=== PATIENT | male | born 1970 | race Caucasian/White ===

== ENCOUNTER 2023-05-27 06:59 | Outpatient (OUT) | payer OTHER, SELFPAY ==
[2023-05-27 07:16] LABS: Basophils Percent Auto 0.5 % (0.2-2.0); Eosinophils Absolute Auto 0.5 10^3/uL (0.0-0.7); Eosinophils Percent Auto 8.5 % (0.9-7.0); Hematocrit 42.1 % (42.0-54.0); Hemoglobin 14.5 g/dL (14.0-18.0); Immature Granulocytes Abs Auto 0.02 10^3/uL (0.00-0.03); Immature Granulocytes Pct Auto 0.4 % (0.0-0.5); Lymphocytes Absolute Auto 1.7 10^3/uL (1.2-3.8); Lymphocytes Percent Auto 31.3 % (20.5-60.0); Mean Corpuscular HGB Conc 34.4 g/dL (29.9-35.2); Mean Corpuscular Hemoglobin 30.5 pg (25.9-34.0); Mean Corpuscular Volume 88.4 fL (80.0-94.0); Mean Platelet Volume 9.2 fL (9.5-13.5); Monocytes Absolute Auto 0.5 10^3/uL (0.3-0.8); Monocytes Percent Auto 8.5 % (1.7-12.0); Neutrophils Absolute Auto 2.8 10^3/uL (1.4-6.5); Neutrophils Percent Auto 50.8 % (43.0-75.0); Platelet Count 219 10^3/uL (150-450); Red Blood Count 4.76 10^6/uL (4.70-6.10); Red Cell Distribution Width 13.6 % (11.0-15.0); White Blood Count 5.5 10^3/uL (4.0-11.0)
[2023-05-27 07:52] LABS: Alanine Aminotransferase 31 U/L (16-63); Albumin Level 3.8 g/dL (3.4-5.0); Alkaline Phosphatase 87 U/L (46-116); Aspartate Amino Transferase 19 U/L (15-37); BUN Creatinine Ratio 13.6; Bilirubin Total 0.3 mg/dL (0.2-1.0); Calcium 8.5 mg/dL (8.5-10.1); Carbon Dioxide 28.5 mmol/L (21.0-32.0); Chloride 105 mmol/L (98-107); Chol HDL Ratio 3.2; Cholesterol 206 mg/dL (<=200); Estimated GFR (African America >60 (>=60); Estimated GFR (Non-African Ame >60 (>=60); Globulin 3.9 g/dL; Glucose 101 mg/dL (74-106); HDL Cholesterol 65 mg/dL (40-60); Potassium 4.5 mmol/L (3.5-5.1); Sodium 141 mmol/L (136-145); Total Protein 7.7 g/dL (6.4-8.2); Triglycerides 58 mg/dL (<=150); VLDL CHOLESTEROL 11.6 mg/dL
[2023-05-27 08:20] LABS: Prostate Specific Antigen Scrn 0.33 ng/mL (<=4.00)
== END 2023-05-27 07:00 | disposition home or self-care (01) ==
LOC: LAB 07:03
PROVIDERS: PCP Internal Medicine; Visit Provider Internal Medicine
DX: Z00.00 Encounter for general adult medical examination without abnormal findings (principal)
CPT/HCPCS: 36415; 80053; 80061; 85025; G0103

== ENCOUNTER 2024-04-20 08:08 | Outpatient (OUT) | payer OTHER, SELFPAY ==
--- OUTSIDE RECORDS SUMMARY | 2024-04-20 08:11 | XMS_ITS | CCD ---
Author Organization [facility] Care Team Providers Care Robotics Technician Name Role Phone GINA, DR NUNN Primary Care Unavailable HOY ., DR MORRIS Admitting Unavailable HOY ., DR MORRIS Attending Unavailable HOY ., DR MORRIS Consulting Unavailable WEST, DR DAKOTA Wick Consulting Unavailable GRECHNY ., LIBBY ANG Consulting Unavailabl e NILL ., DR BURGER Consulting Unavailable AHDOOT, NOHEMY Consulting Unavailable EDGAR, TABITHA Consulting Unavailable PIERRE, MANUELA Consulting Unavailable GINA, DR NUNN Admitting Unavailable GINA, DR NUNN Attending Unavailable GINA, DR NUNN Primary Care Unavailable GINA, DR NUNN Consulting Unavailable GINA, DR NUNN Admitting Unavailable GINA, DR NUNN Attending Unavailable GINA, DR NUNN Primary Care Unavailable GINA, DR NUNN Consulting Unavailable GINA, DR NUNN Primary Care Unavailable HAY ., DR REYNOSO Admitting Unavailable HAY ., DR REYNOSO Attending Unavailable HAY ., DR REYNOSO Consulting Unavailable NILL, Sergio Browning Attending Unavailable KARLA FOSS Referring Unavailable Leonard Cohen Unavailable Baltazar Lea Admitting Baltazar Urena Attending UnavailLeonard Cárdenas Primary Care Unavailable MD Baltazar Lea Attending Provider [phone] DO Leonard Cohen Primary Care Provider [phone] Baltazar Lea Unavailable Medications Current Medications Medication Drug Class(es) Dates Sig (Normalized) Sig (Original) Loratadine (11 sources) Start: 03-04-2024 Loratadine Act jenny 0 .ROUTE .COMPLEX March 04, 2024 10:05am TAKE 1 TABLET DAILY Start: 12-05-2023 End: 03-04-2024 Loratadine Discontinued 0 .R OUTE .COMPLEX December 05, 2023 11:23am March 04, 2024 10:05am TAKE 1 TABLET DAILY Start: 09-15-2022 End: 12-05-2023 take 10 mg by mouth once daily Loratadine Discontinued 10 MG PO Daily September 15, 2022 12:00am December 05, 2023 11:23am Loratadine 10 mg TAKE 1 TABLET DAILY Active valACYclovir (9 sources) Herpesvirus Nucleoside Analog DNA Polymerase Inhibitor, Herpes Simplex Virus Nucleoside Analog DNA Polymerase Inhibitor, Herpes Zoster Virus Nucleoside Analog DNA Polymerase Inhibitor Start: 01-09-2024 Valacyclovir Active 0 .ROUTE .COMPLEX 90 January 09, 2024 8:50am TAKE 1 TABLET DAILY Start: 01-09-2024 End: 01-09-2024 take 1000 mg by mouth once daily Valacyclovir Discontinued 1000 MG PO Daily January 09, 2024 12:00am January 09, 2024 8:50am valACYclovir HCl 1 GM TAKE 1 TABLET DAILY Active valACYclovir HCl 1 GM TAKE 1 TABLET DAILY Active Completed/Discontinued Medications Medication Drug Class(es) Dates Sig (Normalized) Sig (Original) [id number] actuat albuterol 0.09 mg/actuat metered dose inhaler (7 sources) beta2-Adrenergic Agonist Start: 05-05-2017 take 2 puff(s) by inhalation every four hours as needed Albuterol Sulfate HFA 108 (90 Base) MCG/ACT 2 puffs as needed Inhalation every 4 hrs Apr, Not-Taking/PRN Start: 05-05-2017 take 2 puff(s) by in halation every four hours as needed Albuterol Sulfate HFA 108 (90 Base) MCG/ACT 2 puffs as needed Inhalation every 4 hrs Apr, Not-Taking Start: 05-05-2017 take 2 puff(s) by in halation every four hours as needed Albuterol Sulfate HFA 108 (90 Base) MCG/ACT 2 puffs as needed Inhalation every 4 hrs Apr, Not-Taking amoxicillin 875 mg / clavulanate 125 mg oral tablet (7 sources) Penicillin-class Antibacterial Start: 05-05-2017 take 1 tablet by mouth every twelve hours Amoxicillin-Pot Clavulanate 875-125 MG 1 tablet Orally every 12 hrs for 10 day(s) Apr, Not-Taking/PRN plenvu 140 gm solution reconstituted (7 sources) Osmotic Laxative, Vitamin C Start: 05-05-2022 Plenvu 140 GM dose 1 pouch at 4pm, dose 2 pouch A & B at 11pm Orally twice a day for 1 days BIN:[id number] PCN: [id number] GROUP:[id number] ID:[id number] Apr, Not-Taking/PRN Start: 05-05-2022 Plenvu 140 GM dose 1 pouch at 4pm, dose 2 pouch A & B at 11pm Orally twice a day for 1 days BIN:[id number] PCN: [id number] GROUP:[id number] ID:[id number] Apr, Not-Taking bisacodyl 5 mg delayed release oral tablet (7 sources) Stimulant Laxative Start: 05-17-2022 take 3 tablets by mouth once daily as needed Dulcolax 5 MG 3 tablets Orally at 3pm the day prior to colonoscopy for 1 days Apr, Not-Taking/PRN Brompheniramine / Pseudoephedrine (7 sources) alpha-Adrenergi c Agonist Start: 06-09-2017 take 5 mL by mouth every six hours as needed Bromfed DM 30-2-10 MG/5ML 5 ml as needed Orally every 6 hrs May, Not-Taking/PRN Start: 06-09-2017 take 5 mL by mouth e very six hours as needed Bromfed DM 30-2-10 MG/5ML 5 ml as needed Orally every 6 hrs May, Not-Taking Cetirizine (7 sources) Histamine-1 Receptor Antagonist ZyrTEC Allergy Not-Taking/PRN ZyrTEC Allergy N ot-Taking doxycycline monohydrate 100 mg oral capsule (7 sources) Tetracycline-class Drug Start: 06-09-2017 take 1 capsule by mouth every twelve hours Doxycycline Monohydrate 100 MG 1 capsule Orally every 12 hrs for 15 days May, Not-Taking/PRN fluticasone propionate 0.05 mg/actuat metered dose nasal spray (14 sources) Corticosteroid Start: 05-05-2017 take 1 spray(s) nasal route once daily as needed Fluticasone Propionate 50 MCG/ACT 1 spray in each nostril Nasally Once a day for 21 days May, Not-Taking/PRN Start: 05-05-2017 take 1 spray(s) nasa l route once daily Fluticasone Propionate 50 MCG/ACT 1 spray in each nostril Nasally Once a day for 21 days May, Not-Taking MiraLax 17 GM/SCOOP (5 sources) Start: 05-17-2022 take 238 g by mouth once daily MiraLax 17 GM/SCOOP 238gm Orally Once a day, at 5pm the day prior to colonoscopy for 1 days Apr, Not-Taking polyethylene glycol 3350 98202 mg powder for oral solution (2 sources) Osmotic Laxative Start: 05-17-2022 take 238 g by mouth once daily as needed MiraLax 17 GM/SCOOP 238gm Orally Once a day, at 5pm the day prior to colonoscopy for 1 days Apr, Not-Taking/PRN predniSONE 20 mg oral tablet (7 sources) Start: 05-05-2017 predniSONE 20 MG 2 tablets twice daily for 2 days then 1 tablet twice daily for 2 days then 1 tablet daily for 3 days Orally take with food for 7 days Apr, Not-Taking/PRN sildenafil 100 mg oral tablet (10 sources) Phosphodiesterase 5 Inhibitor Start: 09-27-2023 End: 09-27-2023 take 1 tablet by mouth once daily as needed Sildenafil Discontinued 100 MG PO Daily 12 16September 27, 2023 1:24pm September 27, 2023 2:42pm 1 tablet Orally PRN ED Sildenafil Citra te 100 MG 1 tablet Orally PRN ED for 90 days Active Problems Active Problems Problem Classification Problem Date Documented Da te Episodic/Chronic Abdominal pain (3 sources) Unspecified abdominal pain; Translations: [UNSPECIFIED ABDOMINAL PAIN] Onset: 08-18-2022 Episodic Deficiency and other anemia (1 source) Iron deficiency anemia, unspecified; Translations: [IRON DEFICIENCY ANEMIA UNSPECIFIED] Onset: 08-24-2022 Episodic Deficiency and other anemia (7 sources) Anemia; Translations: [Anemia, unspecified] Episodic Deficiency and other anemia (14 sources) Iron deficiency anemia; Translations: [Iron deficiency anemia, unspecified] Episodic Fluid and electrolyte disorders (1 source) Dehydration; Translations: [DEHYDRATION] Onset: 08-24-2022 Episodic Intestinal obstruction without hernia (2 sources) Partial intestinal obstruction, unspecified as to cause; Translations: [PART INTESTINAL OBST UNS TO CAU] Onset: 08-24-2022 Episodic Mood disorders (7 sources) Mild major depression, single episode; Translations: [Major depressive disorder, single episode, mild] Chronic Nutritional deficiencies (4 sources) Iron deficiency; Translations: [Iron deficiency] Onset: 09-15-2022 09-15-2022 Episodic Other aftercare (1 source) Other mcc (current) drug therapy; Translations: [OTH PAYROLL BENEFITS ADMINISTRATOR CURRENT DRUG THERAPY] Onset: 08-24-2022 Episodic Other male genital disorders (7 sources) Impotence of organic origin; Translations: [Male erectile dysfunction, unspecified] Chronic Other male genital disorders (3 sources) Male erectile dysfunction, unspecified; Translations: [Erectile dysfunction] Chronic Other nutritional; endocrine; and metabolic disorders (2 sources) Body mass index 30+ - obesity; Translations: [Body mass index (BMI) 32.0-32.9, adult] Chronic Other nutritional; endocrine; and metabolic disorders (2 sources) 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 imbalance; Translations: [Other obesity due to excess calories] Chronic Other nutritional; endocrine; and metabolic disorders (1 source) Other obesity due to excess calories Chronic Other nutritional; endocrine; and metabolic disorders (1 source) Body mass index (BMI) 32.0-32.9, adult Chronic Other nutritional; endocrine; and metabolic disorders (1 source) Obesity; Translations: [Obesity, unspecified] 04-05-2024 Chronic Other nutritional; endocrine; and metabolic disorders (1 source) Obesity, unspecified; Translations: [Obesity, unspecified] 04-05-2024 Chronic Other screening for suspected conditions (not mental disorders or infectious disease) (5 sources) Other specified abnormal findings of blood chemistry; Translations: [Encounter for screening for malignant neoplasm of prostate] Onset: 11-10-2021 Episodic Other upper respiratory infections (2 sources) Acute upper respiratory infection, unspecified; Translations: [Acute pharyngitis, unspecified] Onset: 06-21-2022 Episodic Residual codes; unclassified (1 source) Acquired absence of other specified parts of digestive tract; Translations: [ACQ ABSENCE OTH PART DIGESTV TRACT] Onset: 08-24-2022 Episodic Unclassified (1 source) CONTACT W/AND (SUSP) EXPOS COVID-19; Translations: [CONTACT W/AND (SUSP) EXPOS COVID-19] Onset: 08-24-2022 Unclassified (2 sources) COUGH, UNSPECIFIED; Translations: [COUGH, UNSPECIFIED] Onset: 06-21-2022 Viral infection (8 sources) Herpes simplex type 2 infection; Translations: [Herpesviral infection, unspecified] Episodic Past or Other Problems Problem Classification Problem Date Documented Da te Episodic/Chronic Deficiency and other anemia (4 sources) Anemia, unspecified; Translations: [ANEMIA UNSPECIFIED] Onset: 02-12-2022 Episodic Unclassified (1 source) COUGH, UNSPECIFIED; Translations: [COUGH, UNSPECIFIED] Onset: 06-19-2022 Results Test Name Value Interpretation Reference Range Facil carol Camacho 09-15-2022 L -- ---- Specimen: [id number] Received: 09/15/22 Status: RICHELLE Bonilla Num: [id number] Spec Type: Surgical Subm Dr: Baltazar Lea MD Tissues: A Stomach - Biopsy/Polyp (PATCHY GATRITIS BX) Procedures: HE/2, Gross/Micro L4 ---- Age/ Patient Sex Location Account Attending Physician ---- Robert Brock/M [id number] Baltazar Lea MD ---- SPEC NUM: [id number] RECD: 09/15/22 STATUS: RICHELLE BONILLA NUM: [id number] JACQUES: 09/15/22 DR: Baltazar Lea MD ENTERED: 09/15/[address] [facility] [address]: MAURO TYPE: Surgical DEPT: S ORDERED: HE/2, Gross/Micro L4 ORDERED: HE/2, Gross/Micro L4 Pathological Diagnosis Stomach, patchy gastritis, biopsy: - Reactive gastropathy with focal intestinal metaplasia. - Negative for Helicobacter pylori on H E stain. COMMENT: The identified risk factors for intestinal metaplasia include H. Pylori infection, high salt intake, smoking, alcohol consumption, and chronic bile reflux. H. Pylori infection should not be excluded on the basis of the negative results of tissue-based tests; other diagnostic tests, including serology, 13c-urea breath test, or stool antigen, should be considered and if positive the patient should be treated. Small foci of intestinal metaplasia have a poorly understood association with the development of malignancy. The association of metaplasia and malignancy occur when at least 20% of the surface demonstrates metaplasia, there is a close family history of gastric carcinoma, or there is a current smoking history. Please correlate clinically. Clinical Information Iron deficiency Gross Description Received in formalin labeled with the patient's name, number and patchy gastritis biopsy is one fragment of soft leary tissue measuring 0.3 cm. Entirely submitted in one cassette labeled A1. ---- Specimen: [id number] Received: 09/15/22 Status: RICHELLE Chad Num: [id number] Spec Type: Surgical Subm Dr: Baltazar Lea MD Tissues: A Stomach - Biopsy/Polyp (PATCHY GATRITIS BX) Procedures: Ramy WILCOX/Micro L4 ---- Patient: VinodRobert Eloise [id number] (Continued) ---- Specimen: Received: 09/15/22 (Continued) Signed (signature on file) Kimi Upton MD 09/16/220 ---- Specimen: Received: 09/15/22 Status: RICHELLE Chad Num: [id number] Spec Type: Surgical Subm Dr: Baltazar Lea MD Tissues: A Stomach - Biopsy/Polyp (PATCHY GATRITIS BX) Procedures: Ramy WILCOX/Micro L4 ---- Patient: Robert Brock [id number] (Continued) ---- Specimen: [id number] Received: 09/15/22 (Continued) Microscopic Description Two glass slides with H E stained material have been examined. The microscopic findings support the above pathologic diagnosis. CPT Codes 06058 ---- ---- Specimen: [id number] Received: 09/15/22 Status: RICHELLE Bonilla Num: [id number] Spec Type: Surgical Subm Dr: Baltazar Lea MD Tissues: A Stomach - Biopsy/Polyp (PATCHY GATRITIS BX) Procedures: HE/2, Gross/Micro L4 ---- Patient: Robert Brock [id number] (Continued) ---- Signed (signature on file) Kimi Upton MD 09/16/22 1210 Normal [facility] Consultation Noteon 08-23-19 Consultation Note [id number] [facility] CBC AUTO DIFFon 08-19-2022 BASO # 0.0 103/ul Normal 0.0-0.1 [facility] Comment on above: Performed By: #### C BC #### [facility] [address] [place] [address] Dr. Bennie Ramey Basophils/100 WBC (Bld) 0.2 % Normal 0.2-2.0 [facility] Comment on above: Performed By: #### C BC #### [facility] [address] [place] [address] Dr. Bennie Ramey EO # 0.4 103/ul Normal 0.0-0.7 [facility] Comment on above: Performed By: #### C BC #### [facility] [address] [place] [address] Dr. Bennie Ramey Eosinophils/100 WBC (Bld) 3.8 % Normal 0.9-7.0 [facility] Comment on above: Performed By: #### C BC #### [facility] [address] [place] [address] Dr. Bennie Ramey Erythrocyte distribution width (RBC) [Ratio] 14.2 % Normal 11.0-15.0 [facility] Comment on above: Performed By: #### C BC #### [facility] [address] [place] [address] Dr. Bennie Ramey Hematocrit (Bld) [Volume fraction] 35.4 % Critically low 42.0-54.0 [facility] Comment on above: Performed By: #### C BC #### [facility] [address] [place] [address] Dr. Bennie Ramey Hemoglobin (Bld) [Mass/Vol] 12.3 g/dL Critically low 14.0-18.0 [facility] Comment on above: Performed By: #### C BC #### [facility] [address] [place] [address] Dr. Bennie Ramey IG # 0.02 10e3/ul Normal 0.00-0.03 [facility] Comment on above: Performed By: #### C BC #### [facility] [address] [place] [address] Dr. Bennie Ramey IG % 0.2 % Normal 0.0-0.5 [facility] Comment on above: Performed By: #### C BC #### [facility] [address] [place] [address] Dr. Bennie Ramey LYMPH # 1.6 103/ul Normal 1.2-3.8 [facility] Comment on above: Performed By: #### C BC #### [facility] [address] [place] [address] Dr. Bennie Ramey Lymphocytes/100 WBC (Bld) 17.4 % Critically low 20.5-60.0 [facility] Comment on above: Performed By: #### C BC #### [facility] [address] [place] [address] Dr. Bennie Ramey MANUAL DIFF REQ NO Normal [facility] Comment on above: Performed By: #### C BC #### [facility] [address] [place] [address] Dr. Bennie Ramey MCH (RBC) [Entitic mass] 29.4 pg Normal 25.9-34.0 [facility] Comment on above: Performed By: #### C BC #### [facility] [address] [place] [address] Dr. Bennie Ramey MCHC (RBC) [Mass/Vol] 34.7 g/dL Normal 29.9-35.2 [facility] Comment on above: Performed By: #### C BC #### [facility] [address] [place] [address] Dr. Bennie Ramey MCV (RBC) [Entitic vol] 84.5 fL Normal 80.0-94.0 [facility] Comment on above: Performed By: #### C BC #### [facility] [address] [place] [address] Dr. Bennie Ramey MONO # 0.6 103/ul Normal 0.3-0.8 [facility] Comment on above: Performed By: #### C BC #### [facility] [address] [place] [address] Dr. Bennie Ramey Monocytes/100 WBC (Bld) 6.9 % Normal 1.7-12.0 [facility] Comment on above: Performed By: #### C BC #### [facility] [address] [place] [address] Dr. Bennie Ramey NEUT # 6.6 103/ul Critically high 1.4-6.5 [facility] Comment on above: Performed By: #### C BC #### [facility] [address] [place] [address] Dr. Bennie Ramey Neutrophils/100 WBC (Bld) 71.5 % Normal 43.0-75.0 [facility] Comment on above: Performed By: #### C BC #### [facility] [address] [place] [address] Dr. Bennie Ramey Platelet mean volume (Bld) [Entitic vol] 9.2 fL Critically low 9.5-13.5 [facility] Comment on above: Performed By: #### C BC #### [facility] [address] [place] [address] Dr. Bennie Ramey PLT 202 103/ul Normal 150-450 [facility] Comment on above: Performed By: #### C BC #### [facility] [address] [place] [address] Dr. Bennie Ramey RBC 4.19 106/ul Critically low 4.70-6.10 [facility] Comment on above: Performed By: #### C BC #### [facility] [address] [place] [address] Dr. Bennie Ramey WBC 9.2 103/ul Normal 4.0-11.0 [facility] Comment on above: Performed By: #### C BC #### [facility] [address] [place] [address] Dr. Bennie Ramey PROF 14(COMP METB)on 023 Albumin [Mass/Vol] 3.4 g/dL Normal 3.4-5.0 [facility] Comment on above: Performed By: #### C MP #### [facility] [address] [place] [address] Dr. Bennie Ramey Albumin/Globulin [Mass ratio] 1.1 {ratio} Normal [facility] Comment on above: Performed By: #### C MP #### [facility] [address] [place] [address] Dr. Bennie Ramey ALP [Catalytic activity/Vol] 90 U/L Normal 46-116 [facility] Comment on above: Performed By: #### C MP #### [facility] [address] [place] [address] Dr. Bennie Ramey ALT [Catalytic activity/Vol] 32 U/L Normal 16-63 [facility] Comment on above: Performed By: #### C MP #### [facility] [address] [place] [address] Dr. Bennie Ramey Anion gap [Moles/Vol] 10.0 mmol/L Normal [facility] Comment on above: Performed By: #### C MP #### [facility] [address] [place] [address] Dr. Bennie Ramey AST [Catalytic activity/Vol] 20 U/L Normal 15-37 [facility] Comment on above: Performed By: #### C MP #### [facility] [address] [place] [address] Dr. Bennie Ramey Bilirubin [Mass/Vol] 0.4 mg/dL Normal 0.2-1.0 [facility] Comment on above: Performed By: #### C MP #### [facility] [address] [place] [address] Dr. Bennie Ramey Calcium [Mass/Vol] 8.5 mg/dL Normal 8.5-10.1 [facility] Comment on above: Performed By: #### C MP #### [facility] [address] [place] [address] Dr. Bennie Ramey Chloride [Moles/Vol] 104 mmol/L Normal 98-107 [facility] Comment on above: Performed By: #### C MP #### [facility] [address] [place] [address] Dr. Bennie Ramey CO2 [Moles/Vol] 29.7 mmol/L Normal 21.0-32.0 [facility] Comment on above: Performed By: #### C MP #### [facility] [address] [place] [address] Dr. Bennie Ramey Creatinine [Mass/Vol] 1.10 mg/dL Normal 0.70-1.30 [facility] Comment on above: Performed By: #### C MP #### [facility] [address] [place] [address] Dr. Bennie Ramey EGFR-AF UGANDAN >60 Normal >=60 [facility] Comment on above: Performed By: #### C MP #### [facility] [address] [place] [address] Dr. Bennie Ramey EGFR-NON AF UGANDAN >60 Normal >=60 [facility] Comment on above: Performed By: #### C MP #### [facility] [address] [place] [address] Dr. Bennie Ramey Globulin (S) [Mass/Vol] 3.0 g/dL Normal [facility] Comment on above: Performed By: #### C MP #### [facility] [address] [address] [address] Bennie Ramey Glucose [Mass/Vol] 111 mg/dL Critically high 74-106 [facility] Comment on above: Performed By: #### C MP #### [facility] [address] [address] [address] Bennie Ramey Potassium [Moles/Vol] 3.7 mmol/L Normal 3.5-5.1 [facility] Comment on above: Performed By: #### C MP #### [facility] [address] [address] [address] Bennie Ramey Protein [Mass/Vol] 6.4 g/dL Normal 6.4-8.2 [facility] Comment on above: Performed By: #### C MP #### [facility] [address] [address] [address] Bennie Ramey Sodium [Moles/Vol] 140 mmol/L Normal 136-145 [facility] Comment on above: Performed By: #### C MP #### [facility] [address] [address] [address] Bennie Ramey Urea nitrogen [Mass/Vol] 10.0 mg/dL Normal 7.0-18.0 [facility] Comment on above: Performed By: #### C MP #### [facility] [address] [address] [address] Bennie Ramey Urea nitrogen/Creatinin e [Mass ratio] 9.1 mg/mg Normal [facility] Comment on above: Performed By: #### C MP #### [facility] [address] [address] [address] Bennie Ramey XR ABD FLAT UP_PA Rebeca 08-19 XR ABD FLAT UP_PA CH EXAM: XR ABD FLAT UP_PA CH 08/19/2022 COMPARISON: CT of the abdomen and pelvis 08/18/2022. FINDINGS: A total of 4 images were obtained. HISTORY: Nasogastric tube in situ IMPRESSION: 1. NG tube extends below the diaphragm with the tip in the proximal gastric lumen. 2. Lung volumes are mildly diminished with mild bibasilar atelectatic changes without edema, failure, pneumothorax, or effusion. Heart size is top normal. Prominent bilateral epicardial fat pad formation is again noted. Overall no acute cardiopulmonary process otherwise identified. 3. Surgical clips about the abdomen are again identified. There is persistent abnormal dilatation of the small bowel, most apparent proximally. On supine imaging a jejunal segment overlapping left abdomen has transverse diameter of 6.2 cm. Air-fluid levels within the small bowel segments are seen on the upright image. Presumably related to moderate grade partial small bowel obstruction. Please note that there is gas and feculent material more distally throughout the large bowel. No obvious free air. 4. Mid lumbar levocurvature with multilevel spondylitic/facet arthritic changes again noted. Electronically authenticated by: TABITHA HERNÁNDEZ Date: 2022-08-19 11:15 Normal [facility] XR SMALL BOWELon 08-19-2022 XR SMALL BOWEL EXAMINATION: XR SMAL L BOWEL HISTORY: Partial obstruction of small bowel COMPARISON: No relevant comparison available. TECHNIQUE: Small bowel series was performed in the usual manner. No pocket setter lockstitch abdominal radiograph was performed. Standard level fluoroscopic mode of operation utilized. FINDINGS: Single image demonstrates contrast filling of small bowel and large bowel loops with the large bowel opacified to the level of the sigmoid colon. No opacification of the sigmoid colon or rectum. Mildly dilated small bowel loops are observed measuring up to 4.3 cm. IMPRESSION : Mildly dilated small bowel loops with progression of contrast to the level of the sigmoid colon. Electronically authenticated by: DAKOTA URIBE Date: 2022-08-19 11:35 Normal [facility] CBC AUTO DIFFon 08-18-2022 BASO # 0.0 103/ul Normal 0.0-0.1 [facility] Comment on above: Performed By: #### C BC #### [facility] [address] [address] [address] Bennie Ramey Basophils/100 WBC (Bld) 0.3 % Normal 0.2-2.0 [facility] Comment on above: Performed By: #### C BC #### [facility] [address] [address] [address] Bennie Ramey EO # 0.1 103/ul Normal 0.0-0.7 [facility] Comment on above: Performed By: #### C BC #### [facility] [address] [address] [address] Bennie Ramey Eosinophils/100 WBC (Bld) 0.8 % Critically low 0.9-7.0 [facility] Comment on above: Performed By: #### C BC #### [facility] [address] [place] [address] Dr. Bennie Ramey Erythrocyte distribution width (RBC) [Ratio] 14.1 % Normal 11.0-15.0 [facility] Comment on above: Performed By: #### C BC #### [facility] [address] [place] [address] Dr. Bennie Ramey Hematocrit (Bld) [Volume fraction] 38.5 % Critically low 42.0-54.0 [facility] Comment on above: Performed By: #### C BC #### [facility] [address] [place] [address] Dr. Bennie Ramey Hemoglobin (Bld) [Mass/Vol] 13.4 g/dL Critically low 14.0-18.0 [facility] Comment on above: Performed By: #### C BC #### [facility] [address] [place] [address] Dr. Bennie Ramey IG # 0.04 10e3/ul Critically high 0.00-0.03 [facility] Comment on above: Performed By: #### C BC #### [facility] [address] [place] [address] Dr. Bennie Ramey IG % 0.4 % Normal 0.0-0.5 [facility] Comment on above: Performed By: #### C BC #### [facility] [address] [place] [address] Dr. Bennie Ramey LYMPH # 0.9 103/ul Critically low 1.2-3.8 [facility] Comment on above: Performed By: #### C BC #### [facility] [address] [place] [address] Dr. Bennie Ramey Lymphocytes/100 WBC (Bld) 8.6 % Critically low 20.5-60.0 [facility] Comment on above: Performed By: #### C BC #### [facility] [address] [place] [address] Dr. Bennie Ramey MANUAL DIFF REQ NO Normal [facility] Comment on above: Performed By: #### C BC #### [facility] [address] [place] [address] Dr. Bennie Ramey MCH (RBC) [Entitic mass] 29.1 pg Normal 25.9-34.0 [facility] Comment on above: Performed By: #### C BC #### [facility] [address] [place] [address] Dr. Bennie Ramey MCHC (RBC) [Mass/Vol] 34.8 g/dL Normal 29.9-35.2 [facility] Comment on above: Performed By: #### C BC #### [facility] [address] [place] [address] Dr. Bennie Ramey MCV (RBC) [Entitic vol] 83.7 fL Normal 80.0-94.0 [facility] Comment on above: Performed By: #### C BC #### [facility] [address] [place] [address] Dr. Bennie Ramey MONO # 0.3 103/ul Normal 0.3-0.8 [facility] Comment on above: Performed By: #### C BC #### [facility] [address] [place] [address] Dr. Bennie Ramey Monocytes/100 WBC (Bld) 2.8 % Normal 1.7-12.0 [facility] Comment on above: Performed By: #### C BC #### [facility] [address] [place] [address] Dr. Bennie Ramey NEUT # 8.7 103/ul Critically high 1.4-6.5 [facility] Comment on above: Performed By: #### C BC #### [facility] [address] [place] [address] Dr. Bennie Ramey Neutrophils/100 WBC (Bld) 87.1 % Critically high 43.0-75.0 [facility] Comment on above: Performed By: #### C BC #### [facility] [address] [place], [place] [address] Dr. Bennie Ramey Platelet mean volume (Bld) [Entitic vol] 9.0 fL Critically low 9.5-13.5 [facility] Comment on above: Performed By: #### C BC #### [facility] [address] [address] [address] Bennie Ramey PLT 204 103/ul Normal 150-450 [facility] Comment on above: Performed By: #### C BC #### [facility] [address] [address] [address] Bennie Ramey RBC 4.60 106/ul Critically low 4.70-6.10 [facility] Comment on above: Performed By: #### C BC #### [facility] [address] [place] [address] Dr. Bennie Ramey WBC 10.0 103/ul Normal 4.0-11.0 [facility] Comment on above: Performed By: #### C BC #### [facility] [address] [place] [address] ABD/PELV W CONon 08-19-19 CT ABD/PELV W CON EXAMINATION: CT ABD/PELV W CON HISTORY: GENERALIZED ABDOMINAL PAIN COMPARISON: None. TECHNIQUE: Helical CT images from the lung bases through the symphysis pubis were obtained with contrast. Coronal and sagittal reformatted images were generated at a workstation for further assessment. Dose reduction techniques were achieved by using automated exposure control and/or adjustment of mA and/or kV according to patient size and/or use of iterative reconstruction technique. FINDINGS: Lower chest: No consolidation. No pleural effusion or pneumothorax. Liver: No suspicious liver lesions. Portal veins appear patent. Gallbladder: No gallstones. No evidence of acute cholecystitis. Spleen: Normal size. Pancreas: No suspicious pancreatic lesions. The pancreatic duct is not dilated. Adrenal glands: No adrenal nodules. Kidneys: No hydronephrosis or obstructing renal stones. There is a punctate nonobstructing stone in the superior left kidney. Bladder / Pelvic organs: Unremarkable. Bowel: Large bowel is diffusely decompressed. Evidence of prior resection with primary reanastomosis about the descending colon. There are 2 sites of prior postsurgical change to the small bowel in the right lower quadrant seen, and at the sites the bowel appears significantly narrowed, proximal to which there are dilated loops of small bowel containing feces. One of these loops for example on series 3 image 67 measures up to 3.9 cm in diameter. There is mild surrounding fat stranding within the mesentery in this region as well. The stomach is significantly dilated and fluid-filled. The duodenum and proximal jejunum otherwise appears decompressed. Lymph nodes: No retroperitoneal, mesenteric, or pelvic lymphadenopathy. Peritoneum / Retroperitoneum: No free fluid or air within the abdomen. Vessels: No infrarenal aortic aneurysm. Bones and soft tissues: No suspicious lesion in the bones. Small bilateral fat-containing inguinal hernias. IMPRESSION: 1. Dilated loops of small bowel in the right lower quadrant containing feces and with mild surrounding fat stranding. A developing partial/incomplete obstruction may be present, with transition point seen at the site of prior small bowel resections. 2. Decompressed large bowel, with evidence of prior resection and primary anastomosis at the descending colon. Electronically authenticated by: MANUELA PIERRE Date: 2022-08-18 15:23 Normal [facility] Covid-19 PCR (CVDTB)on SARS-CoV-2 (COVID-19) RNA AMBERLY+probe Ql (Unsp spec) Not detected Normal NOT DETECTED [facility] Comment on above: Result Comment: When diagnostic testing is negative, the possibility of a false negative should be considered in the context of a patient's recent exposures and the presence of clinical signs and symptoms consistent with SARS-CoV-2. This test is not yet approved or cleared by the [place] FDA. When there are no FDA-approved or cleared tests available, and other criteria are met, FDA can make tests available under an emergency access mechanism called an Emergency Use Authorization (EUA). The EUA for this test is supported by the Internal Control Analyst of Health and Human Service's declaration that circumstances exist to justify the emergency use of in vitro diagnostics for the detection and/or diagnosis of the virus that causes COVID-19. This EUA will remain in effect for the duration of the COVID-19 declaration justifying emergency of IVDs, unless it is terminated or revoked by the FDA (after which the test may no longer be used). Performed By: #### L IPID, CMP #### [facility] [address] [place] [address] Dr. Bennie Ramey ER URINE PROFILEon 3 Bilirubin Ql (U) Negative Normal NEGATIVE [facility] Comment on above: Performed By: #### L IPID, CMP #### [facility] [address] [place] [address] Dr. Bennie Ramey Clarity (U) CLEAR Normal CLEAR [facility] Comment on above: Performed By: #### L IPID, CMP #### [facility] [address] [place] [address] Dr. Bennie Ramey Color (U) LT. YELLOW Normal YELLOW [facility] Comment on above: Performed By: #### L IPID, CMP #### [facility] [address] [place] [address] Dr. Bennie MORA A micrscopic examination will be performed if indicated. Normal [facility] Comment on above: Performed By: #### L IPID, CMP #### [facility] [address] [place] [address] Dr. Bennie Ramey Glucose Ql (U) Negative Normal NEGATIVE [facility] Comment on above: Performed By: #### L IPID, CMP #### [facility] [address] [place] [address] Dr. Bennie Ramey Hemoglobin Ql (U) Negative Normal NEGATIVE [facility] Comment on above: Performed By: #### L IPID, CMP #### [facility] [address] [place] [address] Dr. Bennie Ramey Ketones Ql (U) Negative Normal NEGATIVE [facility] Comment on above: Performed By: #### L IPID, CMP #### [facility] [address] [place] [address] Dr. Bennie Ramey LEUKOCYTES Negative Normal NEGATIVE [facility] Comment on above: Performed By: #### L IPID, CMP #### [facility] [address] [place] [address] Dr. Bennie Ramey Nitrite Ql (U) Negative Normal NEGATIVE [facility] Comment on above: Performed By: #### L IPID, CMP #### [facility] [address] [place] [address] Dr. Bennie Ramey pH (U) 6.5 [pH] Normal 5-9 [facility] Comment on above: Performed By: #### L IPID, CMP #### [facility] [address] [place] [address] Dr. Bennie Ramey SPEC GRAVITY 1.010 Normal 1.005-<=1.025 [facility] Comment on above: Performed By: #### L IPID, CMP #### [facility] [address] [place] [address] Dr. Bennie Ramey UA PROTEIN Negative Normal NEGATIVE/ TRACE [facility] Comment on above: Performed By: #### L IPID, CMP #### [facility] [address] [place] [address] Dr. Bennie Ramey UR MICRO IND NOT INDICATED Normal [facility] Comment on above: Performed By: #### L IPID, CMP #### [facility] [address] [place] [address] Dr. Bennie Ramey Urobilinogen Qn (U) 0.2 {Dary'U}/dL Normal 0.2 - 1.0 [facility] Comment on above: Performed By: #### L IPID, CMP #### [facility] [address] [place] [address] Dr. Bennie Ramey LACTATE/LACTIC ACIDon 2022 Lactate [Moles/Vol] 2.7 mmol/L Critically high 0.4-1.9 [facility] Comment on above: Performed By: #### L IPID, CMP #### [facility] [address] [place] [address] Dr. Bennie Ramey Lactate [Moles/Vol] 2.2 mmol/L Critically high 0.4-1.9 [facility] Comment on above: Performed By: #### L ACT #### [facility] [address] [place] [address] Dr. Bennie Ramey LIPASEon 08-18-2022 Lipase [Catalytic activity/Vol] 63.0 U/L Critically low 73.0-393.0 [facility] Comment on above: Performed By: #### L IPID, CMP #### [facility] [address] [place] [address] Dr. Bennie Ramey PROF 14(COMP METB)on 023 Albumin [Mass/Vol] 3.9 g/dL Normal 3.4-5.0 [facility] Comment on above: Performed By: #### L IPID, CMP #### [facility] [address] [place] [address] Dr. Bennie Ramey Albumin/Globulin [Mass ratio] 1.1 {ratio} Normal [facility] Comment on above: Performed By: #### L IPID, CMP #### [facility] [address] [place] [address] Dr. Bennie Ramey ALP [Catalytic activity/Vol] 93 U/L Normal 46-116 [facility] Comment on above: Performed By: #### L IPID, CMP #### [facility] [address] [place] [address] Dr. Bennie Ramey ALT [Catalytic activity/Vol] 38 U/L Normal 16-63 [facility] Comment on above: Performed By: #### L IPID, CMP #### [facility] [address] [place] [address] Dr. Bennei Ramey Anion gap [Moles/Vol] 14.3 mmol/L Normal [facility] Comment on above: Performed By: #### L IPID, CMP #### [facility] [address] [place] [address] Dr. Bennie Ramey AST [Catalytic activity/Vol] 26 U/L Normal 15-37 [facility] Comment on above: Performed By: #### L IPID, CMP #### [facility] [address] [place] [address] Dr. Bennie Ramey Bilirubin [Mass/Vol] 0.2 mg/dL Normal 0.2-1.0 [facility] Comment on above: Performed By: #### L IPID, CMP #### [facility] [address] [address] [address] Bennie Ramey Calcium [Mass/Vol] 8.8 mg/dL Normal 8.5-10.1 [facility] Comment on above: Performed By: #### L IPID, CMP #### [facility] [address] [place] [address] Dr. Bennie Ramey Chloride [Moles/Vol] 102 mmol/L Normal 98-107 [facility] Comment on above: Performed By: #### L IPID, CMP #### [facility] [address] [place] [address] Dr. Bennie Ramey CO2 [Moles/Vol] 29.1 mmol/L Normal 21.0-32.0 [facility] Comment on above: Performed By: #### L IPID, CMP #### [facility] [address] [place] [address] Dr. Bennie Ramey Creatinine [Mass/Vol] 1.01 mg/dL Normal 0.70-1.30 [facility] Comment on above: Performed By: #### L IPID, CMP #### [facility] [address] [place] [address] Dr. Bennie Ramey EGFR-AF UGANDAN >60 Normal >=60 [facility] Comment on above: Performed By: #### L IPID, CMP #### [facility] [address] [place] [address] Dr. Bennie Ramey EGFR-NON AF UGANDAN >60 Normal >=60 [facility] Comment on above: Performed By: #### L IPID, CMP #### [facility] [address] [place] [address] Dr. Bennie Ramey Globulin (S) [Mass/Vol] 3.5 g/dL Normal [facility] Comment on above: Performed By: #### L IPID, CMP #### [facility] [address] [place] [address] Dr. Bennie Ramey Glucose [Mass/Vol] 118 mg/dL Critically high 74-106 [facility] Comment on above: Performed By: #### L IPID, CMP #### [facility] [address] [place] [address] Dr. Bennie Ramey Potassium [Moles/Vol] 4.4 mmol/L Normal 3.5-5.1 [facility] Comment on above: Performed By: #### L IPID, CMP #### [facility] [address] [place] [address] Dr. Bennie Ramey Protein [Mass/Vol] 7.4 g/dL Normal 6.4-8.2 [facility] Comment on above: Performed By: #### L IPID, CMP #### [facility] [address] [place] [address] Dr. Bennie Ramey Sodium [Moles/Vol] 141 mmol/L Normal 136-145 [facility] Comment on above: Performed By: #### L IPID, CMP #### [facility] [address] [place] [address] Dr. Bennie Ramey Urea nitrogen [Mass/Vol] 13.0 mg/dL Normal 7.0-18.0 [facility] Comment on above: Performed By: #### L IPID, CMP #### [facility] [address] [place] [address] Dr. Bennie Ramey Urea nitrogen/Creatinin e [Mass ratio] 12.9 mg/mg Normal [facility] Comment on above: Performed By: #### L IPID, CMP #### [facility] [address] [place] [address] Dr. Bennie Ramey PROTIMEon 08-18-2022 INR Coag (PPP) [Relative time] 0.94 {INR} Normal [facility] Comment on above: Performed By: #### L IPID, CMP #### [facility] [address] [place] [address] Dr. Bennie Ramey INR GUIDELINES SEE BELOW Normal [facility] Comment on above: Result Comment: FINN RED INR: 2.0 - 3.0 CONDITIONS NOT LISTED BELOW 2.5 - 3.5 FOR PROSTHETIC HEART VALVE REPLACEMENT 2.5 - 3.5 RECURRENT THROMBOSIS Performed By: #### L IPID, CMP #### [facility] [address] [place] [address] Dr. Bennie Ramey PT Coag (PPP) [Time] 10.0 s Normal 9.0-11.6 [facility] Comment on above: Performed By: #### L IPID, CMP #### [facility] [address], [place] [address] Dr. Bennie Ramey PTTon 08-18-2022 aPTT Coag (Bld) [Time] 26.5 s Normal 22.3-36.2 [facility] Comment on above: Performed By: #### L IPID, CMP #### [facility] [address] [place], [place] [address] Dr. Bennie Ramey XR KUB 1 VIEWon 08-18-2022 XR KUB 1 VIEW EXAM: XR KUB 1 VIEW HISTORY: Nasogastric tube in situ COMPARISON: None. TECHNIQUE: Single AP portable upright view of the lower chest/upper abdomen is submitted for review. FINDINGS: Nasogastric tube is seen in place with side port seen at or near the expected location of the gastroesophageal junction, and distal tip projecting over the expected location of the proximal gastric body. If a more distal positioning is desired, advancing the nasogastric tube at least 7 cm is recommended. IMPRESSION: Nasogastric tube is seen in place with side port seen at or near the expected location of the gastroesophageal junction, and distal tip projecting over the expected location of the proximal gastric body. If a more distal positioning is desired, advancing the nasogastric tube at least 7 cm is recommended. Electronically authenticated by: NOHEMY DILL Date: 2022-08-18 17:27 Normal [facility] SARS-CoV-2 (COVID-19) RNA AMBERLY+probe Ql (Unsp spec) Not detected Normal NOT DETECTED [facility] Comment on above: Result Comment: This test is not yet approved or cleared by the [place] FDA. When there are no FDA-approved or cleared tests available, and other criteria are met, FDA can make tests available under an emergency access mechanism called an Emergency Use Authorization (EUA). The EUA for this test is supported by the [place] of Health and Human Service's (HHS's) declaration that circumstances exist to justify the emergency use of in vitro diagnostics for the detection and/or diagnosis of the virus that causes COVID-19. This EUA will remain in effect (meaning this test can be used) for the duration of the COVID-19 declaration justifying emergency of IVDs, unless it is terminated or revoked by FDA (after which the test may no longer be used). When diagnostic testing is negative, the possibility of a false negative should be considered in the context of a patient's recent exposures and the presence of clinical signs and symptoms consistent with SARS-CoV-2. Performed By: #### C VDTBH #### [facility] [address] [place] [address] Dr. Bennie Ramey GROUP A STREP CULTUREon S. pyogenes Ag Ql (Unsp spec) Culture Observations: NEGATIVE FOR GROUP A STREPTOCOCCUS. Normal [facility] Comment on above: Performed By: #### S SCRN, GRASTCX #### [facility] [address] [place] [address] Dr. Bennie Ramey INFLUENZA A AND B AGon 06-19 INFLUANEGH SEE BELOW Normal [facility] Comment on above: Result Comment: Nega tive for Flu A protein angiten. Infection due to Flu A cannot be ruled out. Flu A angiten in the sample may be below the detection limit of the test. Performed By: #### L IPID, CMP #### [facility] [address] [place] [address] Dr. Bennie Ramey INFLUBNEG SEE BELOW Normal [facility] Comment on above: Result Comment: Nega tive for Flu B protein antigen. Infection due to Flu B cannot be ruled out. Flu B antigen in the sample may be below the detection limit of the test. Performed By: #### L IPID, CMP #### [facility] [address] [place] [address] Dr. Bennie Ramey INFLUENZA A AG Negative Normal NEGATIVE SEE COMMENT [facility] Comment on above: Performed By: #### L IPID, CMP #### [facility] [address] [place] [address] Dr. Bennie Ramey INFLUENZA B AG Negative Normal NEGATIVE SEE COMMENT [facility] Comment on above: Performed By: #### L IPID, CMP #### [facility] [address] [place] [address] Dr. Bennie Ramey STREPT SCREENon 06-19-2022 STREP SCREEN A Negative Normal NEGATIVE [facility] Comment on above: Performed By: #### S SCRN, GRASTCX #### [facility] [address] [place] [address] Dr. Bennie Ramey CBC AUTO DIFFon 02-12-2022 BASO # 0.0 103/ul Normal 0.0-0.1 [facility] Comment on above: Performed By: #### L IPID, CMP #### [facility] [address] [place] [address] Dr. Bennie Ramey Basophils/100 WBC (Bld) 0.5 % Normal 0.2-2.0 [facility] Comment on above: Performed By: #### L IPID, CMP #### [facility] [address] [place] [address] Dr. Bennie Ramey EO # 0.6 103/ul Normal 0.0-0.7 [facility] Comment on above: Performed By: #### L IPID, CMP #### [facility] [address] [place] [address] Dr. Bennie Ramey Eosinophils/100 WBC (Bld) 11.2 % Critically high 0.9-7.0 [facility] Comment on above: Performed By: #### L IPID, CMP #### [facility] [address] [place] [address] Dr. Bennie Ramey Erythrocyte distribution width (RBC) [Ratio] 13.8 % Normal 11.0-15.0 [facility] Comment on above: Performed By: #### L IPID, CMP #### [facility] [address] [place] [address] Dr. Bennie Ramey Hematocrit (Bld) [Volume fraction] 40.5 % Critically low 42.0-54.0 [facility] Comment on above: Performed By: #### L IPID, CMP #### [facility] [address] [place] [address] Dr. Bennie Ramey Hemoglobin (Bld) [Mass/Vol] 13.3 g/dL Critically low 14.0-18.0 [facility] Comment on above: Performed By: #### L IPID, CMP #### [facility] [address] [place] [address] Dr. Bennie Ramey IG # 0.01 10e3/ul Normal 0.00-0.03 [facility] [facility] Comment on above: Performed By: #### L IPID, CMP #### [facility] [address] [place] [address] Dr. Bennie Ramey IG % 0.2 % Normal 0.0-0.5 [facility] Comment on above: Performed By: #### L IPID, CMP #### [facility] [address] [place] [address] Dr. Bennie Ramey LYMPH # 1.7 103/ul Normal 1.2-3.8 [facility] Comment on above: Performed By: #### L IPID, CMP #### [facility] [address] [place] [address] Dr. Bennie Ramey Lymphocytes/100 WBC (Bld) 30.4 % Normal 20.5-60.0 [facility] Comment on above: Performed By: #### L IPID, CMP #### [facility] [address] [place] [address] Dr. Bennie Ramey MANUAL DIFF REQ NO Normal [facility] Comment on above: Performed By: #### L IPID, CMP #### [facility] [address] [place] [address] Dr. Bennie Ramey MCH (RBC) [Entitic mass] 28.5 pg Normal 25.9-34.0 [facility] Comment on above: Performed By: #### L IPID, CMP #### [facility] [address] [place] [address] Dr. Bennie Ramey MCHC (RBC) [Mass/Vol] 32.8 g/dL Normal 29.9-35.2 [facility] Comment on above: Performed By: #### L IPID, CMP #### [facility] [address] [place] [address] Dr. Bennie Ramey MCV (RBC) [Entitic vol] 86.7 fL Normal 80.0-94.0 [facility] Comment on above: Performed By: #### L IPID, CMP #### [facility] [address] [place] [address] Dr. Bennie Ramey MONO # 0.6 103/ul Normal 0.3-0.8 [facility] Comment on above: Performed By: #### L IPID, CMP #### [facility] [address] [place] [address] Dr. Bennie Ramey Monocytes/100 WBC (Bld) 10.3 % Normal 1.7-12.0 [facility] Comment on above: Performed By: #### L IPID, CMP #### [facility] [address] [place] [address] Dr. Bennie Ramey NEUT # 2.7 103/ul Normal 1.4-6.5 [facility] Comment on above: Performed By: #### L IPID, CMP #### [facility] [address] [place] [address] Dr. Bennie Ramey Neutrophils/100 WBC (Bld) 47.4 % Normal 43.0-75.0 [facility] Comment on above: Performed By: #### L IPID, CMP #### [facility] [address] [place] [address] Dr. Bennie Ramey Platelet mean volume (Bld) [Entitic vol] 9.8 fL Normal 9.5-13.5 [facility] Comment on above: Performed By: #### L IPID, CMP #### [facility] [address] [place] [address] Dr. Bennie Ramey PLT 186 103/ul Normal 150-450 [facility] Comment on above: Performed By: #### L IPID, CMP #### [facility] [address] [place] [address] Dr. Bennie Ramey RBC 4.67 106/ul Critically low 4.70-6.10 [facility] Comment on above: Performed By: #### L IPID, CMP #### [facility] [address] [place] [address] Dr. Bennie Ramey WBC 5.7 103/ul Normal 4.0-11.0 [facility] Comment on above: Performed By: #### L IPID, CMP #### [facility] [address] [place] [address] Dr. Bennie Ramey FERRITINon 02-12-2022 Ferritin [Mass/Vol] 21.0 ng/mL Critically low 26.0-388.0 [facility] Comment on above: Performed By: #### L IPID, CMP #### [facility] [address] [place] [address] Dr. Bennie Ramey IRON AND TIBCon 02-12-2022 % SATURATION 18.9 % Normal [facility] Comment on above: Performed By: #### L IPID, CMP #### [facility] [address] [place] [address] Dr. Bennie Ramey Iron [Mass/Vol] 74.0 ug/dL Normal 65.0-175.0 [facility] Comment on above: Performed By: #### L IPID, CMP #### [facility] [address] [place] [address] Dr. Bennie Ramey TIBC DIRECT 391.0 ug/dL Normal 250.0-450.0 [facility] Comment on above: Performed By: #### L IPID, CMP #### [facility] [address] [place] [address] Dr. Bennie Ramey VIT B12 AND FOLATEon 022 Cobalamin (Vitamin B12) [Mass/Vol] 593.0 pg/mL Normal 193.0-986.0 [facility] Comment on above: Performed By: #### L IPID, CMP #### [facility] [address] [place] [address] Dr. Bennie Ramey FOLATE 20.20 ng/mL Normal 8.60-58.90 [facility] Comment on above: Performed By: #### L IPID, CMP #### [facility] [address] [place] [address] Dr. Bennie Ramey CBC AUTO DIFFon 11-04-2021 BASO # 0.0 103/ul Normal 0.0-0.1 [facility] Comment on above: Performed By: #### L IPID, CMP #### [facility] [address] [place] [address] Dr. Bennie Ramey Basophils/100 WBC (Bld) 0.5 % Normal 0.2-2.0 [facility] Comment on above: Performed By: #### L IPID, CMP #### [facility] [address] [place] [address] Dr. Bennie Ramey EO # 0.6 103/ul Normal 0.0-0.7 [facility] Comment on above: Performed By: #### L IPID, CMP #### [facility] [address] [place] [address] Dr. Bennie Ramey Eosinophils/100 WBC (Bld) 10.1 % Critically high 0.9-7.0 [facility] Comment on above: Performed By: #### L IPID, CMP #### [facility] [address] [place] [address] Dr. Bennie Ramey Erythrocyte distribution width (RBC) [Ratio] 12.6 % Normal 11.0-15.0 [facility] Comment on above: Performed By: #### L IPID, CMP #### [facility] [address] [place] [address] Dr. Bennie Ramey Hematocrit (Bld) [Volume fraction] 39.6 % Critically low 42.0-54.0 [facility] Comment on above: Performed By: #### L IPID, CMP #### [facility] [address] [place] [address] Dr. Bennie Ramey Hemoglobin (Bld) [Mass/Vol] 13.6 g/dL Critically low 14.0-18.0 [facility] Comment on above: Performed By: #### L IPID, CMP #### [facility] [address] [place] [address] Dr. Bennie Ramey IG # 0.02 10e3/ul Normal 0.00-0.03 [facility] Comment on above: Performed By: #### L IPID, CMP #### [facility] [address] [address] [address] Bennie Ramey IG % 0.3 % Normal 0.0-0.5 [facility] Comment on above: Performed By: #### L IPID, CMP #### [facility] [address] [address] [address] Bennie Ramey LYMPH # 1.6 103/ul Normal 1.2-3.8 [facility] Comment on above: Performed By: #### L IPID, CMP #### [facility] [address] [address] [address] Bennie Ramey Lymphocytes/100 WBC (Bld) 25.4 % Normal 20.5-60.0 [facility] Comment on above: Performed By: #### L IPID, CMP #### [facility] [address] [place] [address] Dr. Bennie Ramey MANUAL DIFF REQ NO Normal [facility] Comment on above: Performed By: #### L IPID, CMP #### [facility] [address] [place] [address] Dr. Bennie Ramey MCH (RBC) [Entitic mass] 30.8 pg Normal 25.9-34.0 [facility] Comment on above: Performed By: #### L IPID, CMP #### [facility] [address] [place] [address] Dr. Bennie Ramey MCHC (RBC) [Mass/Vol] 34.3 g/dL Normal 29.9-35.2 [facility] Comment on above: Performed By: #### L IPID, CMP #### [facility] [address] [address] [address] Bennie Ramey MCV (RBC) [Entitic vol] 89.8 fL Normal 80.0-94.0 [facility] Comment on above: Performed By: #### L IPID, CMP #### [facility] [address] [address] [address] Bennie Ramey MONO # 0.5 103/ul Normal 0.3-0.8 [facility] Comment on above: Performed By: #### L IPID, CMP #### [facility] [address] [address] [address] Bennie Ramey Monocytes/100 WBC (Bld) 7.3 % Normal 1.7-12.0 [facility] Comment on above: Performed By: #### L IPID, CMP #### [facility] [address] [address] [address] Bennie Ramey NEUT # 3.6 103/ul Normal 1.4-6.5 [facility] Comment on above: Performed By: #### L IPID, CMP #### [facility] [address] [address] [address] Bennie Ramey Neutrophils/100 WBC (Bld) 56.4 % Normal 43.0-75.0 [facility] Comment on above: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 CLINICAL DECISIONS SHOULD BE BASED ON THE PRIMARY CLINICAL RECORDS. [facility] [employer] provides no warranty or guarantee of the accuracy or completeness of information in this document.
[2024-04-20 08:55] LABS: Basophils Percent Auto 0.5 % (0.2-2.0); Eosinophils Absolute Auto 0.5 10^3/uL (0.0-0.7); Eosinophils Percent Auto 7.5 % (0.9-7.0); Hematocrit 43.4 % (42.0-54.0); Hemoglobin 14.8 g/dL (14.0-18.0); Immature Granulocytes Abs Auto 0.02 10^3/uL (0.00-0.03); Immature Granulocytes Pct Auto 0.3 % (0.0-0.5); Lymphocytes Absolute Auto 1.6 10^3/uL (1.2-3.8); Lymphocytes Percent Auto 24.1 % (20.5-60.0); Mean Corpuscular HGB Conc 34.1 g/dL (29.9-35.2); Mean Corpuscular Hemoglobin 29.8 pg (25.9-34.0); Mean Corpuscular Volume 87.3 fL (80.0-94.0); Mean Platelet Volume 9.3 fL (9.5-13.5); Monocytes Absolute Auto 0.6 10^3/uL (0.3-0.8); Monocytes Percent Auto 8.9 % (1.7-12.0); Neutrophils Absolute Auto 3.9 10^3/uL (1.4-6.5); Neutrophils Percent Auto 58.7 % (43.0-75.0); Platelet Count 222 10^3/uL (150-450); Red Blood Count 4.97 10^6/uL (4.70-6.10); Red Cell Distribution Width 13.5 % (11.0-15.0); White Blood Count 6.7 10^3/uL (4.0-11.0)
[2024-04-20 09:49] LABS: Alanine Aminotransferase 34 U/L (16-63); Albumin Globulin Ratio 0.8; Albumin Level 3.5 g/dL (3.4-5.0); Alkaline Phosphatase 92 U/L (46-116); Anion Gap 11.4; Aspartate Amino Transferase 23 U/L (15-37); BUN Creatinine Ratio 12.1; Bilirubin Total 0.4 mg/dL (0.2-1.0); Carbon Dioxide 29.9 mmol/L (21.0-32.0); Chloride 104 mmol/L (98-107); Chol HDL Ratio 3.1; Cholesterol 192 mg/dL (<=200); Estimated GFR (African America >60 (>=60 mL/min/1.73m^2); Estimated GFR (Non-African Ame >60 (>=60 mL/min/1.73m^2); Globulin 4.2 g/dL; Glucose 103 mg/dL (74-106); HDL Cholesterol 62 mg/dL (40-60); Potassium 4.3 mmol/L (3.5-5.1); Sodium 141 mmol/L (136-145); Total Protein 7.7 g/dL (6.4-8.2); Triglycerides 110 mg/dL (<=150)
[2024-04-20 09:52] LABS: Prostate Specific Antigen Scrn 0.44 ng/mL (<=4.00)
== END 2024-04-20 08:09 | disposition home or self-care (01) ==
PROVIDERS: PCP Internal Medicine; Visit Provider Internal Medicine
DX: Z00.00 Encounter for general adult medical examination without abnormal findings (principal); Z12.5 Encounter for screening for malignant neoplasm of prostate
CPT/HCPCS: 36415; 80053; 80061; 85025; G0103

== ENCOUNTER 2024-04-24 15:57 | Outpatient (OUT) | payer OTHER, SELFPAY ==
--- OUTSIDE RECORDS SUMMARY | 2024-04-24 16:09 | XMS_ITS | CCD ---
Author Organization [facility] Care Team Providers Care Practical Nurse Name Role Phone GINA, DR NUNN Primary [...] Care Unavailable MD Baltazar Lea Attending Provider DO Leonard Cohen Primary Care Provider [phone] Baltazar Lea Unavailable [phone] Medications Current Medications Medication Drug Class(es) Dates [...] Drug Class(es) Dates Sig (Normalized) Sig (Original) [id number] actuat albuterol 0.09 mg/actuat metered dose [...] Orally twice a day for 1 days BIN:[id number] PCN: [id number] GROUP:[id number] ID:[id number] Apr, Not-Taking/PRN Start: 05-05-2022 Plenvu 140 GM dose 1 pouch at 4pm, dose 2 pouch A & B at 11pm Orally twice a day for 1 days BIN:[id number] PCN: [id number] GROUP:[id number] ID:[id number] Apr, Not-Taking bisacodyl 5 mg delayed release [...] 1 days Apr, Not-Taking polyethylene glycol 3350 31512 mg powder for oral solution (2 sources) [...] 09-15-2022 Episodic Other aftercare (1 source) Other fpc (current) drug therapy; Translations: [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] Onset: 08-24-2022 Episodic Other [...] carol Camacho 09-15-2022 L -- ---- Specimen: [id number] Received: 09/15/22 Status: RICHELLE Bonilla Num: [id number] Spec Type: Surgical Subm Dr: Baltazar Lea MD Tissues: A Stomach - Biopsy/Polyp (PATCHY GATRITIS BX) Procedures: HE/2, Gross/Micro L4 ---- Age/ Patient Sex Location Account Attending Physician ---- Robert Brock/M [id number] Baltazar Lea MD ---- SPEC NUM: [id number] RECD: 09/15/22 STATUS: RICHELLE BONILLA NUM: [id number] JACQUES: 09/15/22 DR: Baltazar Lea MD ENTERED: 09/15/22 [facility] DR: MAURO TYPE: Surgical DEPT: S ORDERED: [...] in one cassette labeled A1. ---- Specimen: [id number] Received: 09/15/22 Status: RICHELLE Chad Num: [id number] Spec Type: Surgical Subm Dr: Baltazar Lea MD Tissues: A Stomach - Biopsy/Polyp (PATCHY GATRITIS BX) Procedures: Ramy WILCOX/Micro L4 ---- Patient: VinodRobert Eloise [id number] (Continued) ---- Specimen: Received: 09/15/22 (Continued) Signed (signature on file) Kimi Upton MD 09/16/220 ---- Specimen: Received: 09/15/22 Status: RICHELLE Chad Num: [id number] Spec Type: Surgical Subm Dr: Baltazar Lea MD Tissues: A Stomach - Biopsy/Polyp (PATCHY GATRITIS BX) Procedures: Ramy WILCOX/Micro L4 ---- Patient: Robert Brock [id number] (Continued) ---- Specimen: [id number] Received: 09/15/22 (Continued) Microscopic Description Two glass slides with H E stained material have been examined. The microscopic findings support the above pathologic diagnosis. CPT Codes 64778 ---- ---- Specimen: [id number] Received: 09/15/22 Status: RICHELLE Bonilla Num: [id number] Spec Type: Surgical Subm Dr: Baltazar Lea MD Tissues: A Stomach - Biopsy/Polyp (PATCHY GATRITIS BX) Procedures: HE/2, Gross/Micro L4 ---- Patient: Robret Brock [id number] (Continued) ---- Signed (signature on file) Kimi Upton MD 09/16/22 1210 Normal [facility] Consultation Noteon 08-23-19 Consultation Note [id number] 0CD:[id number] Normal [facility] CBC AUTO DIFFon 08-19-2022 BASO # 0.0 103/ul Normal 0.0-0.1 [facility] Comment on above: Performed By: #### C BC #### [facility] [address] [place] [address] Dr. Bennie Ramey Basophils/100 WBC (Bld) 0.2 % Normal 0.2-2.0 [facility] Comment on above: Performed By: #### C BC #### [facility] [address] [place] [address] Dr. Bennie Ramey EO # 0.4 103/ul Normal 0.0-0.7 [facility] Comment on above: Performed By: #### C BC #### [facility] [address] [place] [address] Dr. Bennie Ramey Eosinophils/100 WBC (Bld) 3.8 % Normal 0.9-7.0 [facility] Comment on above: Performed By: #### C BC #### [facility] [address] [place] [address] Dr. Bennie Ramey Erythrocyte distribution width (RBC) [Ratio] 14.2 % Normal 11.0-15.0 [facility] Comment on above: Performed By: #### C BC #### [facility] [address] [place] [address] Dr. Bennie Ramey Hematocrit (Bld) [Volume fraction] 35.4 % Critically low 42.0-54.0 [facility] Comment on above: Performed By: #### C BC #### [facility] [address] [place] [address] Dr. Bennie Ramey Hemoglobin (Bld) [Mass/Vol] 12.3 g/dL Critically low 14.0-18.0 [facility] Comment on above: Performed By: #### C BC #### [facility] [address] [place] [address] Dr. Bennie Ramey IG # 0.02 10e3/ul Normal 0.00-0.03 [facility] Comment on above: Performed By: #### C BC #### [facility] [address] [place] [address] Dr. Bennie Ramey IG % 0.2 % Normal 0.0-0.5 [facility] Comment on above: Performed By: #### C BC #### [facility] [address] [place] [address] Dr. Bennie Ramey LYMPH # 1.6 103/ul Normal 1.2-3.8 [facility] Comment on above: Performed By: #### C BC #### [facility] [address] [place] [address] Dr. Bennie Ramey Lymphocytes/100 WBC (Bld) 17.4 % Critically low 20.5-60.0 [facility] Comment on above: Performed By: #### C BC #### [facility] [address] [place] [address] Dr. Bennie Ramey MANUAL DIFF REQ NO Normal [facility] Comment on above: Performed By: #### C BC #### [facility] [address] [place] [address] Dr. Bennie Ramey MCH (RBC) [Entitic mass] 29.4 pg Normal 25.9-34.0 [facility] Comment on above: Performed By: #### C BC #### [facility] [address] [place] [address] Dr. Bennie Ramey MCHC (RBC) [Mass/Vol] 34.7 g/dL Normal 29.9-35.2 [facility] Comment on above: Performed By: #### C BC #### [facility] [address] [place] [address] Dr. Bennie Ramey MCV (RBC) [Entitic vol] 84.5 fL Normal 80.0-94.0 [facility] Comment on above: Performed By: #### C BC #### [facility] [address] [place] [address] Dr. Bennie Ramey MONO # 0.6 103/ul Normal 0.3-0.8 [facility] Comment on above: Performed By: #### C BC #### [facility] [address] [place] [address] Dr. Bennie Ramey Monocytes/100 WBC (Bld) 6.9 % Normal 1.7-12.0 [facility] Comment on above: Performed By: #### C BC #### [facility] [address] [place] [address] Dr. Bennie Ramey NEUT # 6.6 103/ul Critically high 1.4-6.5 [facility] Comment on above: Performed By: #### C BC #### [facility] [address] [place] [address] Dr. Bennie Ramey Neutrophils/100 WBC (Bld) 71.5 % Normal 43.0-75.0 [facility] Comment on above: Performed By: #### C BC #### [facility] [address] [place] [address] Dr. Bennie Ramey Platelet mean volume (Bld) [Entitic vol] 9.2 fL Critically low 9.5-13.5 [facility] Comment on above: Performed By: #### C BC #### [facility] [address] [place] [address] Dr. Bennie Ramey PLT 202 103/ul Normal 150-450 [facility] Comment on above: Performed By: #### C BC #### [facility] [address] [place] [address] Dr. Bennie Ramey RBC 4.19 106/ul Critically low 4.70-6.10 [facility] Comment on above: Performed By: #### C BC #### [facility] [address] [place] [address] Dr. Bennie Ramey WBC 9.2 103/ul Normal 4.0-11.0 [facility] Comment on above: Performed By: #### C BC #### [facility] [address] [place] [address] Dr. Bennie Ramey PROF 14(COMP METB)on 023 Albumin [Mass/Vol] 3.4 g/dL Normal 3.4-5.0 [facility] Comment on above: Performed By: #### C MP #### [facility] [address] [place] [address] Dr. Bennie Ramey Albumin/Globulin [Mass ratio] 1.1 {ratio} Normal [facility] Comment on above: Performed By: #### C MP #### [facility] [address] [place] [address] Dr. Bennie Ramey ALP [Catalytic activity/Vol] 90 U/L Normal 46-116 [facility] Comment on above: Performed By: #### C MP #### [facility] [address] [place] [address] Dr. Bennie Ramey ALT [Catalytic activity/Vol] 32 U/L Normal 16-63 [facility] Comment on above: Performed By: #### C MP #### [facility] [address] [place] [address] Dr. Bennie Ramey Anion gap [Moles/Vol] 10.0 mmol/L Normal [facility] Comment on above: Performed By: #### C MP #### [facility] [address] [place] [address] Dr. Bennie Ramey AST [Catalytic activity/Vol] 20 U/L Normal 15-37 [facility] Comment on above: Performed By: #### C MP #### [facility] [address] [place] [address] Dr. Bennie Ramey Bilirubin [Mass/Vol] 0.4 mg/dL Normal 0.2-1.0 [facility] Comment on above: Performed By: #### C MP #### [facility] [address] [place] [address] Dr. Bennie Ramey Calcium [Mass/Vol] 8.5 mg/dL Normal 8.5-10.1 [facility] Comment on above: Performed By: #### C MP #### [facility] [address] [place] [address] Dr. Bennie Ramey Chloride [Moles/Vol] 104 mmol/L Normal 98-107 [facility] Comment on above: Performed By: #### C MP #### [facility] [address] [place] [address] Dr. Bennie Ramey CO2 [Moles/Vol] 29.7 mmol/L Normal 21.0-32.0 [facility] Comment on above: Performed By: #### C MP #### [facility] [address] [place] [address] Dr. Bennie Ramey Creatinine [Mass/Vol] 1.10 mg/dL Normal 0.70-1.30 [facility] Comment on above: Performed By: #### C MP #### [facility] [address] [place] [address] Dr. Bennie Ramey EGFR-AF GAMBIAN >60 Normal >=60 [facility] Comment on above: Performed By: #### C MP #### [facility] [address] [place] [address] Dr. Bennie Ramey EGFR-NON AF GAMBIAN >60 Normal >=60 [facility] Comment on above: Performed By: #### C MP #### [facility] [address] [place] [address] Dr. Bennie Ramey Globulin (S) [Mass/Vol] 3.0 g/dL Normal [facility] Comment on above: Performed By: #### C MP #### [facility] [address] [address] [address] Bennie Ramey Glucose [Mass/Vol] 111 mg/dL Critically high 74-106 [facility] Comment on above: Performed By: #### C MP #### [facility] [address] [address] [address] Bennie Ramey Potassium [Moles/Vol] 3.7 mmol/L Normal 3.5-5.1 [facility] Comment on above: Performed By: #### C MP #### [facility] [address] [address] [address] Bennie Ramey Protein [Mass/Vol] 6.4 g/dL Normal 6.4-8.2 [facility] Comment on above: Performed By: #### C MP #### [facility] [address] [address] [address] Bennie Ramey Sodium [Moles/Vol] 140 mmol/L Normal 136-145 [facility] Comment on above: Performed By: #### C MP #### [facility] [address] [address] [address] Bennie Ramey Urea nitrogen [Mass/Vol] 10.0 mg/dL Normal 7.0-18.0 [facility] Comment on above: Performed By: #### C MP #### [facility] [address] [address] [address] Bennie Ramey Urea nitrogen/Creatinin e [Mass ratio] 9.1 mg/mg Normal [facility] Comment on above: Performed By: #### C MP #### [facility] [address] [address] [address] Bennie Ramey XR ABD FLAT UP_PA [...] TABITHA HERNÁNDEZ Date: 2022-08-19 11:15 Normal [facility] XR SMALL BOWELon 08-19-2022 XR SMALL BOWEL EXAMINATION: XR SMAL L BOWEL HISTORY: Partial obstruction of small bowel COMPARISON: No relevant comparison available. TECHNIQUE: Small bowel series was performed in the usual manner. 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 Standard level fluoroscopic [...] DAKOTA URIBE Date: 2022-08-19 11:35 Normal [facility] CBC AUTO DIFFon 08-18-2022 BASO # 0.0 103/ul Normal 0.0-0.1 [facility] Comment on above: Performed By: #### C BC #### [facility] [address] [address] [address] Bennie Ramey Basophils/100 WBC (Bld) 0.3 % Normal 0.2-2.0 [facility] Comment on above: Performed By: #### C BC #### [facility] [address] [address] [address] Bennie Ramey EO # 0.1 103/ul Normal 0.0-0.7 [facility] Comment on above: Performed By: #### C BC #### [facility] [address] [address] [address] Bennie Ramey Eosinophils/100 WBC (Bld) 0.8 % Critically low 0.9-7.0 [facility] Comment on above: Performed By: #### C BC #### [facility] [address] [place] [address] Dr. Bennie Ramey Erythrocyte distribution width (RBC) [Ratio] 14.1 % Normal 11.0-15.0 [facility] Comment on above: Performed By: #### C BC #### [facility] [address] [place] [address] Dr. Bennie Ramey Hematocrit (Bld) [Volume fraction] 38.5 % Critically low 42.0-54.0 [facility] Comment on above: Performed By: #### C BC #### [facility] [address] [place] [address] Dr. Bennie Ramey Hemoglobin (Bld) [Mass/Vol] 13.4 g/dL Critically low 14.0-18.0 [facility] Comment on above: Performed By: #### C BC #### [facility] [address] [place] [address] Dr. Bennie Ramey IG # 0.04 10e3/ul Critically high 0.00-0.03 [facility] Comment on above: Performed By: #### C BC #### [facility] [address] [place] [address] Dr. Bennie Ramey IG % 0.4 % Normal 0.0-0.5 [facility] Comment on above: Performed By: #### C BC #### [facility] [address] [place] [address] Dr. Bennie Ramey LYMPH # 0.9 103/ul Critically low 1.2-3.8 [facility] Comment on above: Performed By: #### C BC #### [facility] [address] [place] [address] Dr. Bennie Ramey Lymphocytes/100 WBC (Bld) 8.6 % Critically low 20.5-60.0 [facility] Comment on above: Performed By: #### C BC #### [facility] [address] [place] [address] Dr. Bennie Ramey MANUAL DIFF REQ NO Normal [facility] Comment on above: Performed By: #### C BC #### [facility] [address] [place] [address] Dr. Bennie Ramey MCH (RBC) [Entitic mass] 29.1 pg Normal 25.9-34.0 [facility] Comment on above: Performed By: #### C BC #### [facility] [address] [place] [address] Dr. Bennie Ramey MCHC (RBC) [Mass/Vol] 34.8 g/dL Normal 29.9-35.2 [facility] Comment on above: Performed By: #### C BC #### [facility] [address] [place] [address] Dr. Bennie Ramey MCV (RBC) [Entitic vol] 83.7 fL Normal 80.0-94.0 [facility] Comment on above: Performed By: #### C BC #### [facility] [address] [place] [address] Dr. Bennie Ramey MONO # 0.3 103/ul Normal 0.3-0.8 [facility] Comment on above: Performed By: #### C BC #### [facility] [address] [place] [address] Dr. Bennie Ramey Monocytes/100 WBC (Bld) 2.8 % Normal 1.7-12.0 [facility] Comment on above: Performed By: #### C BC #### [facility] [address] [place] [address] Dr. Bennie Ramey NEUT # 8.7 103/ul Critically high 1.4-6.5 [facility] Comment on above: Performed By: #### C BC #### [facility] [address] [place] [address] Dr. Bennie Ramey Neutrophils/100 WBC (Bld) 87.1 % Critically high 43.0-75.0 [facility] Comment on above: Performed By: #### C BC #### [facility] [address] [place], [place] [address] Dr. Bennie Ramey Platelet mean volume (Bld) [Entitic vol] 9.0 fL Critically low 9.5-13.5 [facility] Comment on above: Performed By: #### C BC #### [facility] [address] [address] [address] Bennie Ramey PLT 204 103/ul Normal 150-450 [facility] Comment on above: Performed By: #### C BC #### [facility] [address] [address] [address] Bennie Ramey RBC 4.60 106/ul Critically low 4.70-6.10 [facility] Comment on above: Performed By: #### C BC #### [facility] [address] [place] [address] Dr. Bennie Ramey WBC 10.0 103/ul Normal 4.0-11.0 [facility] Comment on above: Performed By: #### C BC #### [facility] [address] [place] [address] ABD/PELV W CONon [...] MANUELA PIERRE Date: 2022-08-18 15:23 Normal [facility] Covid-19 PCR (CVDTB)on SARS-CoV-2 (COVID-19) RNA AMBERLY+probe Ql (Unsp spec) Not detected Normal NOT DETECTED [facility] Comment on above: Result Comment: When diagnostic [...] for this test is supported by the [employer] of Health and Human Service's declaration that [...] Performed By: #### L IPID, CMP #### [facility] [address] [place] [address] Dr. Bennie Ramey ER URINE PROFILEon 3 Bilirubin Ql (U) Negative Normal NEGATIVE [facility] Comment on above: Performed By: #### L IPID, CMP #### [facility] [address] [place] [address] Dr. Bennie Ramey Clarity (U) CLEAR Normal CLEAR [facility] Comment on above: Performed By: #### L IPID, CMP #### [facility] [address] [place] [address] Dr. Bennie Ramey Color (U) LT. YELLOW Normal YELLOW [facility] Comment on above: Performed By: #### L IPID, CMP #### [facility] [address] [place] [address] Dr. Bennie MORA A micrscopic examination will be performed if indicated. Normal [facility] Comment on above: Performed By: #### L IPID, CMP #### [facility] [address] [place] [address] Dr. Bennie Ramey Glucose Ql (U) Negative Normal NEGATIVE [facility] Comment on above: Performed By: #### L IPID, CMP #### [facility] [address] [place] [address] Dr. Bennie Ramey Hemoglobin Ql (U) Negative Normal NEGATIVE [facility] Comment on above: Performed By: #### L IPID, CMP #### [facility] [address] [place] [address] Dr. Bennie Ramey Ketones Ql (U) Negative Normal NEGATIVE [facility] Comment on above: Performed By: #### L IPID, CMP #### [facility] [address] [place] [address] Dr. Bennie Ramey LEUKOCYTES Negative Normal NEGATIVE [facility] Comment on above: Performed By: #### L IPID, CMP #### [facility] [address] [place] [address] Dr. Bennie Ramey Nitrite Ql (U) Negative Normal NEGATIVE [facility] Comment on above: Performed By: #### L IPID, CMP #### [facility] [address] [place] [address] Dr. Bennie Ramey pH (U) 6.5 [pH] Normal 5-9 [facility] Comment on above: Performed By: #### L IPID, CMP #### [facility] [address] [place] [address] Dr. Bennie Ramey SPEC GRAVITY 1.010 Normal 1.005-<=1.025 [facility] Comment on above: Performed By: #### L IPID, CMP #### [facility] [address] [place] [address] Dr. Bennie Ramey UA PROTEIN Negative Normal NEGATIVE/ TRACE [facility] Comment on above: Performed By: #### L IPID, CMP #### [facility] [address] [place] [address] Dr. Bennie Ramey UR MICRO IND NOT INDICATED Normal [facility] Comment on above: Performed By: #### L IPID, CMP #### [facility] [address] [place] [address] Dr. Bennie Ramey Urobilinogen Qn (U) 0.2 {Dary'U}/dL Normal 0.2 - 1.0 [facility] Comment on above: Performed By: #### L IPID, CMP #### [facility] [address] [place] [address] Dr. Bennie Ramey LACTATE/LACTIC ACIDon 2022 Lactate [Moles/Vol] 2.7 mmol/L Critically high 0.4-1.9 [facility] Comment on above: Performed By: #### L IPID, CMP #### [facility] [address] [place] [address] Dr. Bennie Ramey Lactate [Moles/Vol] 2.2 mmol/L Critically high 0.4-1.9 [facility] Comment on above: Performed By: #### L ACT #### [facility] [address] [place] [address] Dr. Bennie Ramey LIPASEon 08-18-2022 Lipase [Catalytic activity/Vol] 63.0 U/L Critically low 73.0-393.0 [facility] Comment on above: Performed By: #### L IPID, CMP #### [facility] [address] [place] [address] Dr. Bennie Ramey PROF 14(COMP METB)on 023 Albumin [Mass/Vol] 3.9 g/dL Normal 3.4-5.0 [facility] Comment on above: Performed By: #### L IPID, CMP #### [facility] [address] [place] [address] Dr. Bennie Ramey Albumin/Globulin [Mass ratio] 1.1 {ratio} Normal [facility] Comment on above: Performed By: #### L IPID, CMP #### [facility] [address] [place] [address] Dr. Bennie Ramey ALP [Catalytic activity/Vol] 93 U/L Normal 46-116 [facility] Comment on above: Performed By: #### L IPID, CMP #### [facility] [address] [place] [address] Dr. Bennie Ramey ALT [Catalytic activity/Vol] 38 U/L Normal 16-63 [facility] Comment on above: Performed By: #### L IPID, CMP #### [facility] [address] [place] [address] Dr. Bennie Ramey Anion gap [Moles/Vol] 14.3 mmol/L Normal [facility] Comment on above: Performed By: #### L IPID, CMP #### [facility] [address] [place] [address] Dr. Bennie Ramey AST [Catalytic activity/Vol] 26 U/L Normal 15-37 [facility] Comment on above: Performed By: #### L IPID, CMP #### [facility] [address] [place] [address] Dr. Bennie Ramey Bilirubin [Mass/Vol] 0.2 mg/dL Normal 0.2-1.0 [facility] Comment on above: Performed By: #### L IPID, CMP #### [facility] [address] [address] [address] Bennie Ramey Calcium [Mass/Vol] 8.8 mg/dL Normal 8.5-10.1 [facility] Comment on above: Performed By: #### L IPID, CMP #### [facility] [address] [place] [address] Dr. Bennie Ramey Chloride [Moles/Vol] 102 mmol/L Normal 98-107 [facility] Comment on above: Performed By: #### L IPID, CMP #### [facility] [address] [place] [address] Dr. Bennie Ramey CO2 [Moles/Vol] 29.1 mmol/L Normal 21.0-32.0 [facility] Comment on above: Performed By: #### L IPID, CMP #### [facility] [address] [place] [address] Dr. Bennie Ramey Creatinine [Mass/Vol] 1.01 mg/dL Normal 0.70-1.30 [facility] Comment on above: Performed By: #### L IPID, CMP #### [facility] [address] [place] [address] Dr. Bennie Ramey EGFR-AF GAMBIAN >60 Normal >=60 [facility] Comment on above: Performed By: #### L IPID, CMP #### [facility] [address] [place] [address] Dr. Bennie Ramey EGFR-NON AF GAMBIAN >60 Normal >=60 [facility] Comment on above: Performed By: #### L IPID, CMP #### [facility] [address] [place] [address] Dr. Bennie Ramey Globulin (S) [Mass/Vol] 3.5 g/dL Normal [facility] Comment on above: Performed By: #### L IPID, CMP #### [facility] [address] [place] [address] Dr. Bennie Ramey Glucose [Mass/Vol] 118 mg/dL Critically high 74-106 [facility] Comment on above: Performed By: #### L IPID, CMP #### [facility] [address] [place] [address] Dr. Bennie Ramey Potassium [Moles/Vol] 4.4 mmol/L Normal 3.5-5.1 [facility] Comment on above: Performed By: #### L IPID, CMP #### [facility] [address] [place] [address] Dr. Bennie Ramey Protein [Mass/Vol] 7.4 g/dL Normal 6.4-8.2 [facility] [facility] Comment on above: Performed By: #### L IPID, CMP #### [facility] [address] [place] [address] Dr. Bennie Ramey Sodium [Moles/Vol] 141 mmol/L Normal 136-145 [facility] Comment on above: Performed By: #### L IPID, CMP #### [facility] [address] [place] [address] Dr. Bennie Ramey Urea nitrogen [Mass/Vol] 13.0 mg/dL Normal 7.0-18.0 [facility] Comment on above: Performed By: #### L IPID, CMP #### [facility] [address] [place] [address] Dr. Bennie Ramey Urea nitrogen/Creatinin e [Mass ratio] 12.9 mg/mg Normal [facility] Comment on above: Performed By: #### L IPID, CMP #### [facility] [address] [place] [address] Dr. Bennie Ramey PROTIMEon 08-18-2022 INR Coag (PPP) [Relative time] 0.94 {INR} Normal [facility] Comment on above: Performed By: #### L IPID, CMP #### [facility] [address] [place] [address] Dr. Bennie Ramey INR GUIDELINES SEE BELOW Normal [facility] Comment on above: Result Comment: FINN RED INR: 2.0 - 3.0 CONDITIONS NOT LISTED BELOW 2.5 - 3.5 FOR PROSTHETIC HEART VALVE REPLACEMENT 2.5 - 3.5 RECURRENT THROMBOSIS Performed By: #### L IPID, CMP #### [facility] [address] [place] [address] Dr. Bennie Ramey PT Coag (PPP) [Time] 10.0 s Normal 9.0-11.6 [facility] Comment on above: Performed By: #### L IPID, CMP #### [facility] [address] [place], [place] [address] Dr. Bennie Ramey PTTon 08-18-2022 aPTT Coag (Bld) [Time] 26.5 s Normal 22.3-36.2 [facility] Comment on above: Performed By: #### L IPID, CMP #### [facility] [address] [place], [place] [address] Dr. Bennie Ramey XR KUB 1 VIEWon [...] NOHEMY DILL Date: 2022-08-18 17:27 Normal [facility]on SARS-CoV-2 (COVID-19) RNA AMBERLY+probe Ql (Unsp spec) Not detected Normal NOT DETECTED [facility] Comment on above: Result Comment: This test is not yet approved or cleared by the [place] FDA. When there are no FDA-approved or cleared tests available, and other criteria are met, FDA can make tests available under an emergency access mechanism called an Emergency Use Authorization (EUA). The EUA for this test is supported by the [place] of Health and Human Service's (HHS's) declaration [...] SARS-CoV-2. Performed By: #### C VDTBH #### [facility] [address] [place] [address] Dr. Bennie Ramey GROUP A STREP CULTUREon S. pyogenes Ag Ql (Unsp spec) Culture Observations: NEGATIVE FOR GROUP A STREPTOCOCCUS. Normal [facility] Comment on above: Performed By: #### S SCRN, GRASTCX #### [facility] [address] [place] [address] Dr. Bennie Ramey INFLUENZA A AND B AGon 06-19 INFLUANEGH SEE BELOW Normal [facility] Comment on above: Result Comment: Nega tive for Flu A protein angiten. Infection due to Flu A cannot be ruled out. Flu A angiten in the sample may be below the detection limit of the test. Performed By: #### L IPID, CMP #### [facility] [address] [place] [address] Dr. Bennie Ramey INFLUBNEG SEE BELOW Normal [facility] Comment on above: Result Comment: Nega tive for Flu B protein antigen. Infection due to Flu B cannot be ruled out. Flu B antigen in the sample may be below the detection limit of the test. Performed By: #### L IPID, CMP #### [facility] [address] [place] [address] Dr. Bennie Ramey INFLUENZA A AG Negative Normal NEGATIVE SEE COMMENT [facility] Comment on above: Performed By: #### L IPID, CMP #### [facility] [address] [place] [address] Dr. Bennie Ramey INFLUENZA B AG Negative Normal NEGATIVE SEE COMMENT [facility] Comment on above: Performed By: #### L IPID, CMP #### [facility] [address] [place] [address] Dr. Bennie Ramey STREPT SCREENon 06-19-2022 STREP SCREEN A Negative Normal NEGATIVE [facility] Comment on above: Performed By: #### S SCRN, GRASTCX #### [facility] [address] [place] [address] Dr. Bennie Ramey CBC AUTO DIFFon 02-12-2022 BASO # 0.0 103/ul Normal 0.0-0.1 [facility] Comment on above: Performed By: #### L IPID, CMP #### [facility] [address] [place] [address] Dr. Bennie Ramey Basophils/100 WBC (Bld) 0.5 % Normal 0.2-2.0 [facility] Comment on above: Performed By: #### L IPID, CMP #### [facility] [address] [place] [address] Dr. Bennie Ramey EO # 0.6 103/ul Normal 0.0-0.7 [facility] Comment on above: Performed By: #### L IPID, CMP #### [facility] [address] [place] [address] Dr. Bennie Ramey Eosinophils/100 WBC (Bld) 11.2 % Critically high 0.9-7.0 [facility] Comment on above: Performed By: #### L IPID, CMP #### [facility] [address] [place] [address] Dr. Bennie Ramey Erythrocyte distribution width (RBC) [Ratio] 13.8 % Normal 11.0-15.0 [facility] Comment on above: Performed By: #### L IPID, CMP #### [facility] [address] [place] [address] Dr. Bennie Ramey Hematocrit (Bld) [Volume fraction] 40.5 % Critically low 42.0-54.0 [facility] Comment on above: Performed By: #### L IPID, CMP #### [facility] [address] [place] [address] Dr. Bennie Ramey Hemoglobin (Bld) [Mass/Vol] 13.3 g/dL Critically low 14.0-18.0 [facility] Comment on above: Performed By: #### L IPID, CMP #### [facility] [address] [place] [address] Dr. Bennie Ramey IG # 0.01 10e3/ul Normal 0.00-0.03 [facility] Comment on above: Performed By: #### L IPID, CMP #### [facility] [address] [place] [address] Dr. Bennie Ramey IG % 0.2 % Normal 0.0-0.5 [facility] Comment on above: Performed By: #### L IPID, CMP #### [facility] [address] [place] [address] Dr. Bennie Ramey LYMPH # 1.7 103/ul Normal 1.2-3.8 [facility] Comment on above: Performed By: #### L IPID, CMP #### [facility] [address] [place] [address] Dr. Bennie Ramey Lymphocytes/100 WBC (Bld) 30.4 % Normal 20.5-60.0 [facility] Comment on above: Performed By: #### L IPID, CMP #### [facility] [address] [place] [address] Dr. Bennie Ramey MANUAL DIFF REQ NO Normal [facility] Comment on above: Performed By: #### L IPID, CMP #### [facility] [address] [place] [address] Dr. Bennie Ramey MCH (RBC) [Entitic mass] 28.5 pg Normal 25.9-34.0 [facility] Comment on above: Performed By: #### L IPID, CMP #### [facility] [address] [place] [address] Dr. Bennie Ramey MCHC (RBC) [Mass/Vol] 32.8 g/dL Normal 29.9-35.2 [facility] Comment on above: Performed By: #### L IPID, CMP #### [facility] [address] [place] [address] Dr. Bennie Ramey MCV (RBC) [Entitic vol] 86.7 fL Normal 80.0-94.0 [facility] Comment on above: Performed By: #### L IPID, CMP #### [facility] [address] [place] [address] Dr. Bennie Ramey MONO # 0.6 103/ul Normal 0.3-0.8 [facility] Comment on above: Performed By: #### L IPID, CMP #### [facility] [address] [place] [address] Dr. Bennie Ramey Monocytes/100 WBC (Bld) 10.3 % Normal 1.7-12.0 [facility] Comment on above: Performed By: #### L IPID, CMP #### [facility] [address] [place] [address] Dr. Bennie Ramey NEUT # 2.7 103/ul Normal 1.4-6.5 [facility] Comment on above: Performed By: #### L IPID, CMP #### [facility] [address] [place] [address] Dr. Bennie Ramey Neutrophils/100 WBC (Bld) 47.4 % Normal 43.0-75.0 [facility] Comment on above: Performed By: #### L IPID, CMP #### [facility] [address] [place] [address] Dr. Bennie Ramey Platelet mean volume (Bld) [Entitic vol] 9.8 fL Normal 9.5-13.5 [facility] Comment on above: Performed By: #### L IPID, CMP #### [facility] [address] [place] [address] Dr. Bennie Ramey PLT 186 103/ul Normal 150-450 [facility] Comment on above: Performed By: #### L IPID, CMP #### [facility] [address] [place] [address] Dr. Bennie Ramey RBC 4.67 106/ul Critically low 4.70-6.10 [facility] Comment on above: Performed By: #### L IPID, CMP #### [facility] [address] [place] [address] Dr. Bennie Ramey WBC 5.7 103/ul Normal 4.0-11.0 [facility] Comment on above: Performed By: #### L IPID, CMP #### [facility] [address] [place] [address] Dr. Bennie Ramey FERRITINon 02-12-2022 Ferritin [Mass/Vol] 21.0 ng/mL Critically low 26.0-388.0 [facility] Comment on above: Performed By: #### L IPID, CMP #### [facility] [address] [place] [address] Dr. Bennie Ramey IRON AND TIBCon 02-12-2022 % SATURATION 18.9 % Normal [facility] Comment on above: Performed By: #### L IPID, CMP #### [facility] [address] [place] [address] Dr. Bennie Ramey Iron [Mass/Vol] 74.0 ug/dL Normal 65.0-175.0 [facility] Comment on above: Performed By: #### L IPID, CMP #### [facility] [address] [place] [address] Dr. Bennie Ramey TIBC DIRECT 391.0 ug/dL Normal 250.0-450.0 [facility] Comment on above: Performed By: #### L IPID, CMP #### [facility] [address] [place] [address] Dr. Bennie Ramey VIT B12 AND FOLATEon 022 Cobalamin (Vitamin B12) [Mass/Vol] 593.0 pg/mL Normal 193.0-986.0 [facility] Comment on above: Performed By: #### L IPID, CMP #### [facility] [address] [place] [address] Dr. Bennie Ramey FOLATE 20.20 ng/mL Normal 8.60-58.90 [facility] Comment on above: Performed By: #### L IPID, CMP #### [facility] [address] [place] [address] Dr. Bennie Ramey CBC AUTO DIFFon 11-04-2021 BASO # 0.0 103/ul Normal 0.0-0.1 [facility] Comment on above: Performed By: #### L IPID, CMP #### [facility] [address] [place] [address] Dr. Bennie Ramey Basophils/100 WBC (Bld) 0.5 % Normal 0.2-2.0 [facility] Comment on above: Performed By: #### L IPID, CMP #### [facility] [address] [place] [address] Dr. Bennie Ramey EO # 0.6 103/ul Normal 0.0-0.7 [facility] Comment on above: Performed By: #### L IPID, CMP #### [facility] [address] [place] [address] Dr. Bennie Ramey Eosinophils/100 WBC (Bld) 10.1 % Critically high 0.9-7.0 [facility] Comment on above: Performed By: #### L IPID, CMP #### [facility] [address] [place] [address] Dr. Bennie Ramey Erythrocyte distribution width (RBC) [Ratio] 12.6 % Normal 11.0-15.0 [facility] Comment on above: Performed By: #### L IPID, CMP #### [facility] [address] [place] [address] Dr. Bennie Ramey Hematocrit (Bld) [Volume fraction] 39.6 % Critically low 42.0-54.0 [facility] Comment on above: Performed By: #### L IPID, CMP #### [facility] [address] [place] [address] Dr. Bennie Ramey Hemoglobin (Bld) [Mass/Vol] 13.6 g/dL Critically low 14.0-18.0 [facility] Comment on above: Performed By: #### L IPID, CMP #### [facility] [address] [place] [address] Dr. Bennie Ramey IG # 0.02 10e3/ul Normal 0.00-0.03 [facility] Comment on above: Performed By: #### L IPID, CMP #### [facility] [address] [place] [address] [address] Bennie Ramey IG % 0.3 % Normal 0.0-0.5 [facility] Comment on above: Performed By: #### L IPID, CMP #### [facility] [address] [place] [address] [address] Bennie Ramey LYMPH # 1.6 103/ul Normal 1.2-3.8 [facility] Comment on above: Performed By: #### L IPID, CMP #### [facility] [address] [place] [address] [address] Bennie Ramey Lymphocytes/100 WBC (Bld) 25.4 % Normal 20.5-60.0 [facility] Comment on above: Performed By: #### L IPID, CMP #### [facility] [address] [place] [address] Dr. Bennie Ramey MANUAL DIFF REQ NO Normal [facility] Comment on above: Performed By: #### L IPID, CMP #### [facility] [address] [place] [address] Dr. Bennie Ramey MCH (RBC) [Entitic mass] 30.8 pg Normal 25.9-34.0 [facility] Comment on above: Performed By: #### L IPID, CMP #### [facility] [address] [place] [address] Dr. Bennie Ramey MCHC (RBC) [Mass/Vol] 34.3 g/dL Normal 29.9-35.2 [facility] Comment on above: Performed By: #### L IPID, CMP #### [facility] [address] [place] [address] [address] Bennie Ramey MCV (RBC) [Entitic vol] 89.8 fL Normal 80.0-94.0 [facility] Comment on above: Performed By: #### L IPID, CMP #### [facility] [address] [place] [address] [address] Bennie Ramey MONO # 0.5 103/ul Normal 0.3-0.8 [facility] Comment on above: Performed By: #### L IPID, CMP #### [facility] [address] [place] [address] [address] Bennie Ramey Monocytes/100 WBC (Bld) 7.3 % Normal 1.7-12.0 [facility] Comment on above: Performed By: #### L IPID, CMP #### [facility] [address] [place] [address] [address] Bennie Ramey NEUT # 3.6 103/ul Normal 1.4-6.5 [facility] Comment on above: Performed By: #### L IPID, CMP #### [facility] [address] [place] [address] [address] Bennie Ramey Neutrophils/100 WBC (Bld) 56.4 % Normal 43.0-75.0 [facility] Comment on above: Performed By: #### L IPID, CMP #### [facility] [address] [place] [address] Dr. Bennie Ramey Platelet mean volume (Bld) [Entitic vol] 9.3 fL Critically low 9.5-13.5 [facility] Comment on above: Performed By: #### L IPID, CMP #### [facility] [address] [place] [address] [address] Bennie Ramey PLT 202 103/ul Normal 150-450 [facility] Comment on above: Performed By: #### L IPID, CMP #### [facility] [address] [place] [address] [address] Bennie Ramey RBC 4.41 106/ul Critically low 4.70-6.10 [facility] Comment on above: Performed By: #### L IPID, CMP #### [facility] [address] [place] [address] [address] Bennie Ramey WBC 6.3 103/ul Normal 4.0-11.0 [facility] Comment on above: Performed By: #### L IPID, CMP #### [facility] [address] [place] [address] Dr. Bennie Ramey LIPID PROFILEon 11-04-2021 CHOL-HDL RATIO NORM SEE BELOW Normal [facility] Comment on above: Result Comment: 3.3 - 4.4 LOW RISK 4.4 - 7.1 AVERAGE RISK 7.1 - 11.0 MODERATE RISK >11.0 HIGH RISK Performed By: #### L IPID, CMP #### [facility] [address] [place] [address] [address] Bennie Ramey Cholesterol [Mass/Vol] 191 mg/dL Normal <=200 [facility] Comment on above: Performed By: #### L IPID, CMP #### [facility] [address] [place] [address] [address] Bennie Ramey Cholesterol in HDL [Mass/Vol] 60 mg/dL Normal 40-60 [facility] Comment on above: Performed By: #### L IPID, CMP #### [facility] [address] [place] [address] Dr. Bennie Ramey Cholesterol in LDL [Mass/Vol] 110.0 mg/dL Normal [facility] Comment on above: Performed By: #### L IPID, CMP #### [facility] [address] [place] [address] Dr. Bennie Ramey Cholesterol.total/ Cholesterol in HDL [Mass ratio] 3.2 {ratio} Normal [facility] Comment on above: Performed By: #### L IPID, CMP #### [facility] [address] [place] [address] Dr. Bennie Ramey HDL NORMAL > or = 60 mg/dl - LO W CARDIOVASCULAR RISK <40 mg/dl - HIGH CARDIOVASCULAR RISK Normal [facility] Comment on above: Performed By: #### L IPID, CMP #### [facility] [address] [place] [address] Dr. Bennie Ramey LDL CALC NORMAL SEE BELOW Normal [facility] Comment on above: Result Comment: <100 mg/dl OPTIMAL 100 - 129 mg/dl NEAR OR ABOVE OPTIMAL 130 - 159 mg/dl BORDERLINE HIGH 160 - 189 mg/dl HIGH >190 mg/dl VERY HIGH Performed By: #### L IPID, CMP #### [facility] [address] [place] [address] Dr. Bennie Ramey Triglyceride [Mass/Vol] 105 mg/dL Normal <=150 [facility] Comment on above: Performed By: #### L IPID, CMP #### [facility] [address] [place] [address] [address] Bennie Ramey VLDL CALC 21.0 mg/dL Normal [facility] Comment on above: Performed By: #### L IPID, CMP #### [facility] [address] [place] [address] Dr. Bennie Ramey PROF 14(COMP METB)on 022 Albumin [Mass/Vol] 3.7 g/dL Normal 3.4-5.0 [facility] Comment on above: Performed By: #### L IPID, CMP #### [facility] [address] [place] [address] Dr. Bennie Ramey Albumin/Globulin [Mass ratio] 1.0 {ratio} Normal [facility] Comment on above: Performed By: #### L IPID, CMP #### [facility] [address] [place] [address] Dr. Bennie Ramey ALP [Catalytic activity/Vol] 89 U/L Normal 46-116 [facility] Comment on above: Performed By: #### L IPID, CMP #### [facility] [address] [place] [address] Dr. Bennie Ramey ALT [Catalytic activity/Vol] 30 U/L Normal 16-63 [facility] Comment on above: Performed By: #### L IPID, CMP #### [facility] [address] [place] [address] Dr. Bennie Ramey Anion gap [Moles/Vol] 10.9 mmol/L Normal [facility] Comment on above: Performed By: #### L IPID, CMP #### [facility] [address] [place] [address] Dr. Bennie Ramey AST [Catalytic activity/Vol] 22 U/L Normal 15-37 [facility] Comment on above: Performed By: #### L IPID, CMP #### [facility] [address] [place] [address] Dr. Bennie Ramey Bilirubin [Mass/Vol] 0.3 mg/dL Normal 0.2-1.0 [facility] Comment on above: Performed By: #### L IPID, CMP #### [facility] [address] [place] [address] [address] Bennie Ramey Calcium [Mass/Vol] 8.9 mg/dL Normal 8.5-10.1 [facility] Comment on above: Performed By: #### L IPID, CMP #### [facility] [address] [place] [address] Dr. Bennie Ramey Chloride [Moles/Vol] 105 mmol/L Normal 98-107 [facility] Comment on above: Performed By: #### L IPID, CMP #### [facility] [address] [place] [address] Dr. Bennie Ramey CO2 [Moles/Vol] 29.1 mmol/L Normal 21.0-32.0 [facility] Comment on above: Performed By: #### L IPID, CMP #### [facility] [address] [place] [address] Dr. Bennie Ramey Creatinine [Mass/Vol] 1.08 mg/dL Normal 0.70-1.30 [facility] Comment on above: Performed By: #### L IPID, CMP #### [facility] [address] [place] [address] Dr. Bennie Ramey EGFR-AF GAMBIAN >60 Normal >=60 [facility] Comment on above: Performed By: #### L IPID, CMP #### [facility] [address] [place] [address] Dr. Bennie Ramey EGFR-NON AF GAMBIAN >60 Normal >=60 [facility] Comment on above: Performed By: #### L IPID, CMP #### [facility] [address] [place] [address] Dr. Bennie Ramey Globulin (S) [Mass/Vol] 3.8 g/dL Normal [facility] Comment on above: Performed By: #### L IPID, CMP #### [facility] [address] [place] [address] Dr. Bennie Ramey Glucose [Mass/Vol] 90 mg/dL Normal 74-106 [facility] Comment on above: Performed By: #### L IPID, CMP #### [facility] [address] [place] [address] [address] Bennie Ramey Potassium [Moles/Vol] 4.0 mmol/L Normal 3.5-5.1 [facility] Comment on above: Performed By: #### L IPID, CMP #### [facility] [address] [place] [address] Dr. Bennie Ramey Protein [Mass/Vol] 7.5 g/dL Normal 6.4-8.2 [facility] Comment on above: Performed By: #### L IPID, CMP #### [facility] [address] [place] [address] Dr. Bennie Ramey Sodium [Moles/Vol] 141 mmol/L Normal 136-145 [facility] Comment on above: Performed By: #### L IPID, CMP #### [facility] [address] [place] [address] Dr. Bennie Ramey Urea nitrogen [Mass/Vol] 14.0 mg/dL Normal 7.0-18.0 [facility] Comment on above: Performed By: #### L IPID, CMP #### [facility] [address] [place] [address] Dr. Bennie Ramey Urea nitrogen/Creatinin e [Mass ratio] 13.0 mg/mg Normal [facility] Comment on above: Performed By: #### L IPID, CMP #### [facility] [address] [place] [address] Dr. Bennie Ramey Vital Signs Date Time Vital Sign Value Performing Clinician Facility 04-05-2024 [id number] Body height 180.34 cm [facility] 04-05-2024 [id number] Body mass index (BMI) [Ratio] 33.2 kg/m2 [facility] 04-05-2024 [id number] Body weight 108.01 kg [facility] 04-05-2024 10:32-0400 Diastolic blood pressure 75 mm[Hg] [facility] 04-05-2024 10:32-0400 Heart rate 65 /min [facility] 04-05-2024 10:32-0400 Respiratory rate 12 /min [facility] 04-05-2024 10:32-0400 Systolic blood pressure 126 mm[Hg] [facility] 03-28-2023 09:30-0400 Body height 180.34 cm Leonard Ball Other [facility] [employer] Other 03-28-2023 09:30-0400 Body mass index (BMI) [Ratio] 32.94 kg/m2 Leonard Ball Other [facility] [employer] Other 03-28-2023 09:30-0400 Body weight 107.14 kg Leonard Ball Other [facility] [employer] Other 03-28-2023 09:30-0400 Diastolic blood pressure 78 mm[Hg] Leonard Ball Other [facility] [employer] Other 03-28-2023 09:30-0400 Respiratory rate 12 /min Leonard Ball Other [facility] [employer] Other 03-28-2023 09:30-0400 Systolic blood pressure 121 mm[Hg] Leonard Ball Other [facility] [employer] Other 09-15-2022 09:50-0400 Diastolic blood pressure 80 mm[Hg] DO Leonard Ball Work Phone: [facility] 09-15-2022 09:50-0400 Heart rate 66 /min DO Leonard Ball Work Phone: [facility] 09-15-2022 09:50-0400 Respiratory rate 16 /min DO Leonard Ball Work Phone: [facility] 09-15-2022 09:50-0400 SaO2% (BldA) [Mass fraction] 96 % DO Leonard Ball Work Phone: [facility] 03-30-2023 09:50-0400 Systolic blood pressure 124 mm[Hg] DO Leonard Ball Work Phone: [facility] 09-15-2022 08:15-0400 Body height 180.34 cm DO Leonard Ball Work Phone: [facility] 09-15-2022 08:15-0400 Body temperature 98.5 [degF] DO Leonard Ball Work Phone: [facility] 09-15-2022 08:15-0400 Body weight 102.05 kg DO Leonard Ball Work Phone: [facility] 08-22-2022 14:00-0500 Body height 180.34 cm Leonard Ball Other [facility] [employer] Other 08-22-2022 14:00-0500 Body mass index (BMI) [Ratio] 33.25 kg/m2 Leonard Ball Other [employer] Other 08-22-2022 14:00-0500 Body weight 108.14 kg Leonard Ball Other [employer] Other 08-22-2022 14:00-0500 Diastolic blood pressure 80 mm[Hg] Leonard Ball Other [employer] Other 08-22-2022 14:00-0500 Respiratory rate 12 /min Leonard Ball Other [employer] Other 08-22-2022 14:00-0500 Systolic blood pressure 118 mm[Hg] Leonard Ball Other [employer] Other Encounters Encounter Date Encounter Type Care Provider Facility Start: 04-05-2024 End: 04-05-2024 ambulatory [facility] Work Phone: Start: 04-05-2024 End: 04-05-2024 Encounter for general adult medical examination without abnormal findings [facility] [facility] Start: 04-05-2024 End: 04-05-2024 Patient encounter procedure [facility] Work Phone: Start: 04-03-2024 Patient encounter procedure [facility] Start: 04-03-2024 Patient encounter status [facility] Start: 05-29-2023 End: 05-29-2023 ambulatory Leonard Cohen Other [facility] Other Start: 05-29-2023 Telephone encounter Leonard MARTIN [facility] Start: 03-28-2023 End: 03-28-2023 ambulatory Leonard Cohen Other [facility] Other Start: 03-28-2023 Encounter for genera l adult medical examination without abnormal findings Leonard Cohen [facility] Start: 03-28-2023 Periodic preventive med est patient 40-64yrs Leonard Cohen [facility] Start: 01-03-2023 End: 01-03-2023 ambulatory Leonard Cohen Other [facility] Other Start: 01-03-2023 Telephone encounter Leonard MARTIN [facility] Start: 10-13-2022 End: 10-13-2022 ambulatory Leonard Cohen Other [facility] Other Start: 10-13-2022 Telephone encounter Leonard MARTIN [facility] Start: 09-22-2022 End: 09-22-2022 ambulatory Baltazar Lea Other [facility] Other Start: 09-22-2022 Telephone encounter Baltazar rodriguez [facility] [employer] Start: 09-15-2022 Telephone encounter Leonard MARTIN [facility] Start: 09-15-2022 End: 09-15-2022 Admission to same day surgery center DO Leonard Cohen Work Phone: [facility] Work Phone: Start: 09-15-2022 End: 09-15-2022 ambulatory Baltazar Lea [facility] Work Phone: Start: 08-22-2022 End: 08-22-2022 ambulatory Leonard Cohen Other [facility] Other Start: 08-22-2022 Office outpatient vi sit 15 minutes Leonard WELCH [facility] Start: 08-19-2022 ambulatory Sergio NICHOLAS Facility:[facility] Start: 08-18-2022 End: 08-19-[address] LEONARD COHEN Facility:[facility] Start: 06-19-2022 End: 06-19-[address] LEONARD COHEN Facility:[facility] Start: 02-12-2022 End: 02-13-[address] LEONARD COHEN Facility:[facility] Start: 11-10-2021 Encounter for genera l adult medical examination without abnormal findings [facility] Start: 11-04-2021 End: 11-05-[address] LEONARD COHEN Facility:[facility] Start: 11-04-2021 End: 11-05-2021 Encounter for general adult medical examination without abnormal findings DR LEONARD COHEN Facility:[facility] Procedures Date Procedure Procedure Detail Performing Clinician Start: 09-15-2022 Esophagogastroduodenoscopy DO Leonard Cohen Work Phone: Start: 11-04-[address] MARIE IN [place] Comment on above: Performed By: #### [facility] #### [facility] [address] [place] [address] Dr. Bennie Ramey Plan of Treatment Date Care Activity Detail Author Start: 09-15-2022 [facility] Comprehensive metabo lic 2000 panel - Serum or Plasma [facility] Immunizations Immunization Date Immunization Notes Care Provider Fa cility 03-08-2023 influenza, injectabl e, quadrivalent, preservative free Leonard Cohen Other [facility] 03-10-2021 influenza virus vaccine, split virus (incl. purified surface antigen) Leonard Cohen Other [facility] Other 03-10-2021 influenza virus vaccine, unspecified formulation [facility] 02-19-2020 influenza virus vaccine, split virus (incl. purified surface antigen) Leonard Cohen Other [facility] anchor[employer] Other 02-19-2020 influenza virus vaccine, unspecified formulation [facility] 02-13-2018 influenza virus vaccine, split virus (incl. purified surface antigen) Leonard Cohen Other [facility] Other 02-13-2018 influenza virus vaccine, unspecified formulation [facility] 07-20-2017 tetanus and diphther ia toxoids, adsorbed, preservative free, for adult use (5 Lf of tetanus toxoid and 2 Lf of diphtheria toxoid) Leonard Cohen Other [facility] Payers Date Payer Category Payer Self-pay 1970 Unknown [id number] 2.16.84 [id number] 1970 Unknown [id number] 2.16.84 [id number] 1970 Unknown [id number] 2.16.84 [id number] 1970 Unknown [id number] 2.16.84 [id number] 1970 Unknown [id number] 2.16.8 [id number] 1959 Private Health Insurance [id number] Unknown [id number] 2.16.8 [id number] Social History Date Type Detail Facility Unknown if ever smoked [facility] Other Sex Assigned At Sex Assigned At Bir th [facility] Other Start: 09-15-2022 End: 03-28-2023 Tobacco smoking status NHIS Never smoked tobacco (finding) [facility] Start: 1970 Sex Assigned At Male F [facility] Goals Date Patient Goal Desired Activity [...] (ICD-10 - Z12.5) Yearly SCOTTY and PSA [facility] Other Procedure note 09-15-2022 Note Date & Type Note Facility 09-15-2022 Procedure note [facility] Evaluation note 08-22-2022 Note Date & Type [...] ER for increased pain, bloating or N/V [facility] Other Consultation note 08-18-2022 Note Date & [...] drug allergies. MEDICATIONS: Only medications are some peyx-pfy-vnftzxq allergy medications and vitamin. He is on [...] were answered. CC: Leonard Cohen D.O. [facility] Evaluation note Note Date & Type Note Facility Evaluation note No Information [facility] NERITES Other Evaluation note Note Date & Type Note Facility Evaluation note Diagnosis Onset Date Iron deficiency acute [facility] Work Phone: Evaluation note Note Date & Type Note Facility Evaluation note Diagnosis Onset Date Erectile dysfunction acute Obesity acute Screening PSA (prostate specific antigen) acute Wellness examination acute [facility] Work Phone: History general Narrative - Reported [...] OPENING 2002 Hospitalization History SEE SURGICAL HX [facility] Other History general Narrative - Reported Note [...] bx 08/2022 Hospitalization History SEE SURGICAL HX [facility] Other Hospital Discharge instructions Note Date & [...] if you have any problems. -Office number [phone] [facility] Work Phone: Summary Purpose Family History [...] AUTHOR AUTHOR'S ORGANIZ ATION 08/26/2022 Ashby Constantino [facility] DATE CREATED AUTHOR AUTHOR'S ORGANIZ ATION 09/20/2022 [facility] REASON FOR VISIT (unrecogniz ed section [...] BE BASED ON THE PRIMARY CLINICAL RECORDS. [facility] [employer] provides no warranty or guarantee of the accuracy or completeness of information in this document.
== END 2024-04-24 15:58 | disposition home or self-care (01) ==
LOC: SLEEP 15:57
PROVIDERS: PCP Internal Medicine; Visit Provider Internal Medicine
DX: G47.33 Obstructive sleep apnea (adult) (pediatric) (principal)

== ENCOUNTER 2025-04-29 09:10 | Outpatient (OUT) | payer OTHER, SELFPAY ==
--- OUTSIDE RECORDS SUMMARY | 2025-04-29 03:58 | XMS_ITS | Continuity of Care Document ---
Author Organization 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 Name Role Phone Leonard Cohen DO Primary Care Provider Leonard Cohen DO Attending Provider Care Teams Patient Care Team Team Status: Active Member Role/Relationship Status Dates Leonard Cohen DO Primary Care Provider Active Patient Care Team Team Status: Inactive Member Role/Relationship Status Dates Leonard Cohen DO Primary Care Provider Active Start: April 29, 2025 End: April 29enjabill Cohen DOAttending ProviderActiveStart: April 29, 2025 End: April 29, 2025 Chief Complaint and Reason for Visit Chief Complaint Admit Date Wellness April 29, 2025 8:28am Reason for Visit Admit Date Erectile dysfunction April 29, 2025 8:28am Obesity April 29, 2025 8:28am Screening PSA (prostate specific antigen ) April 29, 2025 8:28am Wellness examination April 29, 2025 8:28am Allergies, Adverse Reactions, Alerts Allergen Type Severity Reaction Last Updated Verified Status No Known Allergies Allergy Unknown April 29, 2025 8:36amYesActive Social History Smoking Status Status Start Date End Date Date of Observa tion Never smoked tobacco (finding) March 28, 2023 9:36am Observation Status Observation Response Date of Response Legal Sex [facility] (finding) [facility] 1970 Family History Relationship Condition Age at Onset Recorded Date/T luiz Not Specified No pertinent family history Unknown Problems Active Problems Problem Diagnosis/Recorded Date Onset Date Status C omments Encounter for annual [facility] visit April 03, 2024 6:05am Unknown Active Screening PSA (prostate specific antigen)April 05, 2024 10:02amUnknownActive PSA: 0.44 - 04/2024Erectile dysfunctionOctober 2023 10:00amUnknownActive Wellness examinationOctober 2023 6:04amUnknownActiveObesityOctober 2023 10:00amUnknownActiveInactive/Resolved Problems Problem Diagnosis/Recorded Date Onset Date Status C omments Iron deficiency September 15, 2022 8:22am Unknown Resolve d Problem List clean-up per request of Phys. EHR Cmte Medications Medication Status Dose Units Route Directions Qty Days Refills S tart Date Stop Date End Date Reason(s) Instructions Adherence Loratadine 10 mg tablet Discontinued 0 .ROUTE.NHIMSUP270Azni 2023 10:23amSeptember 2023 9:05amTAKE 1 TABLET DAILYValacyclovir 1 gram tabletDiscontinued0.ROUTE.QVPEHYO476Ffyv 2023 7:50amOctober 2023 7:48amTAKE 1 TABLET DAILYLoratadine 10 mg tablet Discontinued0.ROUTE.WJYYXAQ254Czwdimbiw 2023 9:05amApril 2024 7:25am TAKE 1 TABLET DAILYValacyclovir 1 gram tabletDiscontinued0.ROUTE.RONSWPA048 April 08, 2024 7:48amApril 2024 7:25amTAKE 1 TABLET DAILYLoratadine 10 mg tabletActive0.ROUTE.WAECCLJ673Yeohw 2024 7:24amTAKE 1 TABLET DAILY Complies with drug therapySildenafil 100 mg obvlxsYvbgga832CCFJCnovp as needed for sexual pwqhfikm65671Rkyyk 2024 7:24am1 tablet Orally PRN EDComplies with drug therapyValacyclovir 1 gram tabletActive0.ROUTE.BQOMSRF729Yjhot 2024 7:25amTAKE 1 TABLET DAILYComplies with drug therapyLoratadine 10 mg Tablet Hdnlbchiwawq49JSYLFawiaVyhqh 2022 11:00pmJune 2023 10:23amSildenafil 100 mg cxpzpbTtclntypdrue737NSSZYylzv 2023 11:00pmApril 2023 12:26pm1 tablet Orally PRN EDSildenafil 100 mg odfxumIdqusgphnsfx255QBGEEemjr as needed for sexual zszczhiw4325Txhsw 2023 12:24pmApril 2023 1:42pm1 tablet Orally PRN EDSildenafil 100 mg wlwzrzPwvqajevybif401NIWKVnexd as needed for sexual cykjdzlk38377Dakzz 2023 1:41pmApril 2024 7:25am1 tablet Orally PRN EDValacyclovir 1 gram ygevhbCdesgtkemkcj5875PKIHMiskyDtdi 2023 11:00pmJuly 2023 7:50am Immunizations Immunization Event Date Not Given Reason Dose Number 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 Number Reason(s) Given Vaccine Information Statement (VIS) Detail Administration Location COVID-19 Ad26.COV2.S (Proximic) October 27, [id number], injectable, MDCK, pfSeptember [id number], injectable, MDCK, pfAugust [id number] Quadrivalent PF MDCK July [id number] Quadrivalent PF MDCKSeptember 44445 influenza, unspecified formulationAugust 2017influenza, unspecified formulationSept2019influenza, unspecified formulationSeptember 2020Quadrivalent InfluenzaSeptember 2022Quadrivalent InfluenzaAugust [id number] InfluenzaSeptember 83542Y2B7Cxiemvypyzql Influenza February 19, 20206826YH2N8Pcjsjmdmifoq InfluenzaSeptember 154C23 Quadrivalent InfluenzaAugust [id number], Diphtheria adult, 5 Lf pres free absFebruary 2017 Vital Signs Vital Reading Result Reference Range Collection Date/Time Height 71 [in_i] April 29, 2025 8:58etQsvvbn246.29 kgNovember 2024 8:38amHeart Rate72 /qur58-752Fgpxvkbz 11th, 2025 8:38amRespiratory rate12 /ece26-55Piwqwofe 2024 8:38amBP Zwrygsbt769 mm[Hg]100-140Nov2024 8:38amBP Gqqojdjkm42 mm[Hg]60-100April 29, 2025 8:38amBMI (Body Mass Index)32.3 kg/g0LebovruhApril 29, 2025 8:38am Advance Directives Advance Directive Response Recorded Date/ Time Advance Directives No September 15 023 6:15am Insurance Providers Guarantor Robert Brock Address [address] [address]Xvnkqed Info.Home Phone: Payer Group Member ID Coverage Type Subscriber Relationship to Subscriber Effective Date Expiration Date [employer] [id number] E Mirtes Id: [id number] [address] [address] Home Phone: Self Encounters Encounter Location(s) Arrival/Admit Date Discharge/Departure Date Discharge/Departure Disposition Provider(s) Departed Physician/ Provider [facility] Visit [facility] April 29, 2025 8:28am April 29, 2025 8:57am Discharged to home care or self care (routine discharge) Leonard Cohen , DO Recent Diagnosis Onset Date Admit Date Erectile dysfunction Unknown April 292024 8:28am Obesity Unknown April 29 8:28am Screening PSA (prostate specific antigen) Unknow n April 29, 2025 8:28am Wellness examination Unknown April 292024 8:28am Assessments Diagnosis Onset Date Resolution Status Admit Date Erectile dysfunction acuteApril 29, 2025 8:28[facility] 8:28amScreening PSA (prostate specific antigen)acuteNov2024 8:28amWellness examinationacuteAt[facility]2024 8:28am Plan of Treatment Author Leonard Cohen [facility]2024 7:04amI have instructed this patient on the recommended lifestyle changes, which includes a low fat, high fiber diet along with a regular exercise routine. I have also reviewed the recommended age-appropriate preventive testing for this patient. I have also reviewed the recommended vaccines for their age and risk factors. I have instructed this patient to consume a healthy, low-fat, low-salt diet. I have also encouraged them to continue exercise with weight loss to achieve/maintain a BMI < 30. I have instructed this patient on the correct procedure for obtaining home BP measurements:? - rest for 5 minutes w/o talking. - positioned w/ feet on floor and arms supported. - average best 2/3 readings w/ goal < 135/85. - update office w/ home readings in 2 weeks. Symptoms improved w/ Sildenafil. Healthy diet and exercise I have recommended yearly PSA testing. I have informed him that the PSA can be elevated w/ cancer, infection and enlarged prostates. I have explained to the patient, that If his PSA is elevated, while there are many causes, referral will be recommended to r/o cancer. He would be referred to Urology, who may recommend an MRI, TRUS/bx or possibly continued monitoring. He is agreeable to this plan of action Future Tests Future scheduled test information is unavailable Pending Tests Test Name Ordered Date Scheduled Date Comprehensive Metabolic Panel April 29 8:50am Future Visits Future appointment information is unavailable Future Procedures Procedure Name Ordered Date Scheduled Date Complete Blood Count Auto Diff April 29 8:50am Lipid PanelNov2024 8:50amPSA Screen (Yearly Only)April 29, 2025 8:50am Future Medications Future medication information is unavailable Patient Instructions Patient instructions are unavailable
[2025-04-29 09:35] LABS: Hematocrit 41.9 % (42.0-54.0); Hemoglobin 14.7 g/dL (14.0-18.0); Immature Granulocytes Abs Auto 0.01 10^3/uL (0.00-0.03); Immature Granulocytes Pct Auto 0.2 % (0.0-0.5); Lymphocytes Absolute Auto 1.4 10^3/uL (1.2-3.8); Mean Corpuscular HGB Conc 35.1 g/dL (29.9-35.2); Mean Corpuscular Hemoglobin 31.8 pg (25.9-34.0); Mean Corpuscular Volume 90.7 fL (80.0-94.0); Platelet Count 190 10^3/uL (150-450); Red Blood Count 4.62 10^6/uL (4.70-6.10); White Blood Count 5.2 10^3/uL (4.0-11.0)
[2025-04-29 10:07] LABS: Alanine Aminotransferase 31 U/L (16-63); Albumin Globulin Ratio 1.0; Albumin Level 3.8 g/dL (3.4-5.0); Alkaline Phosphatase 92 U/L (46-116); Anion Gap 13.7; Aspartate Amino Transferase 22 U/L (15-37); Blood Urea Nitrogen 16.0 mg/dL (7.0-18.0); Calcium 9.2 mg/dL (8.5-10.1); Carbon Dioxide 26.8 mmol/L (21.0-32.0); Chloride 105 mmol/L (98-107); Cholesterol 180 mg/dL (<=200); Estimated GFR (African America >60 (>=60 mL/min/1.73m^2); Estimated GFR (Non-African Ame >60 (>=60 mL/min/1.73m^2); Globulin 3.8 g/dL; Glucose 82 mg/dL (74-106); HDL Cholesterol 63 mg/dL (40-60); Potassium 4.5 mmol/L (3.5-5.1); Sodium 141 mmol/L (136-145); Total Protein 7.6 g/dL (6.4-8.2); Triglycerides 100 mg/dL (<=150); VLDL CHOLESTEROL 20.0 mg/dL
== END 2025-04-29 09:11 | disposition home or self-care (01) ==
LOC: LAB 09:11
PROVIDERS: PCP Internal Medicine; Visit Provider Internal Medicine
DX: Z00.00 Encounter for general adult medical examination without abnormal findings (principal); Z12.5 Encounter for screening for malignant neoplasm of prostate
CPT/HCPCS: 36415; 80053; 80061; 85025; G0103